=== PATIENT | female | born 1990 | race African-American/Black ===

== ENCOUNTER 2016-07-26 15:54 | Emergency (ER) | payer OTHER ==
[2016-07-26 15:59] VITALS: BP 111/69
[2016-07-26] MEDS ORDERED: NS 0.9% 1000 ML* 1,000 ML IV ONE (17:15)
[2016-07-26 17:43] LABS: Hematocrit 34 % (35-47); Hemoglobin 11.1 g/dl (12.0-16.0); Mean Corpuscular HGB Conc 33 g/dl (31-36); Mean Corpuscular Hemoglobin 31 pg (27-31); Mean Corpuscular Volume 94 fL (80-97); Mean Platelet Volume 10 um3 (7.4-10.4); Red Cell Distribution Width 13 % (10.5-15); White Blood Count 4.4 10^3/ul (3.5-10.8)
[2016-07-26 17:54] LABS: ALT 15 U/L (7-52); Albumin 4.1 g/dL (3.2-5.2); Alkaline Phosphatase 42 U/L (34-104); BUN/Creatinine Ratio 19.7 (8-20); Blood Urea Nitrogen 14 mg/dL (6-24); C Reactive Protein 1.54 mg/L (< 5.00); CO2 Carbon Dioxide 24 mmol/L (22-32); Calcium 9.2 mg/dL (8.6-10.3); Chloride 106 mmol/L (101-111); EGFR African American 130.1 (>60); EGFR Non-African American 101.1 (>60); Glucose 91 mg/dL (70-100); Lipase 21 U/L (11.0-82.0); Sodium 136 mmol/L (133-145); Total Protein 7.1 g/dL (6.4-8.9)
[2016-07-26 17:55] LABS: Anion Gap 6 mmol/L (2-11); Potassium 4.2 mmol/L (3.5-5.0)
[2016-07-26 17:56] LABS: AST 15 U/L (13-39)
--- NOTE | 2016-07-26 19:01 | ED ---
Farideh, DoctorGris, scribed for Rao Moreno MD on 07/26/16 at 1711 . GI/ HPI - HPI Summary HPI Summary: 26 year old female arrived to [facility] c/o lower abdominal pain beginning suddenly two days ago. She reports intermittent pain that has been constant since this morning; rates her pain as 6/10. She additionally has been experiencing vomiting , nausea, increased BMs, and diarrhea. She denies any change in appetite, fever , chills, sore throat, cough, rhinorrhea, pain when inhaling, back pain, flank pain, dysuria, or vaginal discharge. Her pain is unchanged with ambulation or eating; she took an Ibuprofen this morning at 1000 with no relief. She has not experienced an episode similar to this before. Pt has one child (delivered via C -Section) and is currently taking Depo (last shot 4 months ago); she denies possibility of . She has no other abdominal surgeries. Pt has a PMHx of anemia; no history of ovarian cysts. She is a non-smoker, non-drinker. - History of Current Complaint Chief Complaint: EDAbdPain Time Seen by Provider: 07/26/16 16:46 Stated Complaint: ABD PAIN Hx Obtained From: Patient Onset/Duration: Started Days Ago, Still Present Timing: Intermittent Severity: Moderate Current Severity: Moderate Pain Intensity: 6 Location of Pain: Suprapubic - primarily on the right side Associated Signs and Symptoms: Positive: Nausea, Vomiting, Diarrhea, Abdominal Pain, Other: - increased BMs. Negative: Back Pain, Discharge, Fever, Dysuria, Change in Appetite, Flank Pain, Chills, Cough, Chest Pain Additional Signs & Symptoms: Positive: Depo provera. Negative: Recent Travel Alleviating Factor(s): Nothing - no change with Ibuprofen - Allergy/Home Medications Allergies/Adverse Reactions: Allergies Allergy/AdvReac Type Severity Reaction Status Date / Time No Known Allergies Allergy Verified 07/26/16 15:59 PMH/Surg Hx/FS Hx/Imm Hx Endocrine/Hematology History: Denies: Hx Blood Disorders, Hx Diabetes - unknown Comment Only: Hx Anticoagulant Therapy - unknown, Hx Thyroid Disease - unknown Cardiovascular History: Denies: Hx Hypertension - unknown Comment Only: Hx Pacemaker/ICD - unknown Respiratory History: Denies: Hx Asthma - unknown Comment Only: Hx Chronic Obstructive Pulmonary Disease (COPD) - unknown GI History: Denies: Other GI Disorders History: Denies: Other Problems/Disorders Comment Only: Hx Renal Disease - unknown Musculoskeletal History: Denies: Other Musculoskeletal History Neurological History: Denies: Hx Headaches, Hx Migraine Comment Only: Hx Dementia - unknown, Hx Seizures - unknown Psychiatric History: Denies: Hx Anxiety, Hx Depression Comment Only: Hx Substance Abuse - unknown - Immunization History Date of Tetanus Vaccine: Unk Date of Influenza Vaccine: 4076-6771 Season Infectious Disease History: No Infectious Disease History: Denies: Hx Hepatitis, Hx Human Immunodeficiency Virus (HIV), Traveled Outside the [place] in Last 30 Days - Family History Known Family History: Positive: Cardiac Disease, Hypertension Negative: Diabetes - Social History Occupation: Employed Full-time Alcohol Use: Rare Hx Substance Use: No Substance Use Type: Reports: None Hx Tobacco Use: No Smoking Status (MU): Never Smoked Tobacco Review of Systems Negative: Fever, Chills Negative: Sore Throat, Nasal Discharge Negative: Chest Pain Negative: Cough Positive: Abdominal Pain, Vomiting, Diarrhea, Nausea, Other - increased BMs Negative: dysuria, discharge, flank pain Musculoskeletal: Negative - back pain, flank pain Negative: Headache All Other Systems Reviewed And Are Negative: Yes Physical Exam - Summary Physical Exam Summary: General appearance: well appearing, NAD, normal development, thin, normal body habitus, well groomed HEENT: normocephalic, atraumatic, ears and nose without masses or lesions, conjunctivae normal, moist oral mucosa, tonsils normal Neck: symmetric without masses or tracheal deviation, no thyromegaly, neck supple Chest: CTA, normal breath sounds Cardiovascular: good color, warmth, and capillary refill in extremities, no peripheral edema, RRR Musculoskeletal: no CVA tenderness Abdomen: no McBurney's point tenderness, positive for tenderness over right and left ovaries. No pain with percussion of heels, no pain with leg distention. Skin: no visible rashes, lesions, or ulcers; slightly diaphoretic. Neurological/Psychiatric: good fine motor coordination, sensation intact to light touch distally, cranial nerves II-XII grossly intact, appropriate judgment and insight, oriented to time, place and person, normal mood and affect Triage Information Reviewed: Yes Vital Signs On Initial Exam: Initial Vitals Temp Pulse Resp BP Pulse Ox 98.4 F 88 14 111/69 100 07/26/16 15:57 07/26/16 15:57 07/26/16 15:57 07/26/16 15:57 07/26/16 15:57 Vital Signs Reviewed: Yes Diagnostics - Vital Signs Vital Signs Temp Pulse Resp BP Pulse Ox 07/26/16 15:57 98.4 F 88 14 111/69 100 - Laboratory Lab Results: Lab Results 07/26/16 07/26/16 07/26/16 Range/Units 17:30 17:30 17:30 WBC 4.4 (3.5-10.8) 10^3/ul RBC 3.60 L (4.0-5.4) 10^6/ul Hgb 11.1 L (12.0-16.0) g/dl Hct 34 L (35-47) % MCV 94 (80-97) fL MCH 31 (27-31) pg MCHC 33 (31-36) g/dl RDW 13 (10.5-15) % Plt Count 205 (150-450) 10^3/ul MPV 10 (7.4-10.4) um3 Neut % (Auto) 38.0 (38-83) % Lymph % (Auto) 46.3 (25-47) % Mccreary % (Auto) 13.4 H (1-9) % Eos % (Auto) 1.6 (0-6) % Baso % (Auto) 0.7 (0-2) % Absolute Neuts (auto) 1.7 (1.5-7.7) 10^3/ul Absolute Lymphs (auto) 2.0 (1.0-4.8) 10^3/ul Absolute Monos (auto) 0.6 (0-0.8) 10^3/ul Absolute Eos (auto) 0.1 (0-0.6) 10^3/ul Absolute Basos (auto) 0 (0-0.2) 10^3/ul Absolute Nucleated RBC 0.01 10^3/ul Nucleated RBC % 0.1 Sodium 136 (133-145) mmol/L Potassium 4.2 (3.5-5.0) mmol/L Chloride 106 (101-111) mmol/L Carbon Dioxide 24 (22-32) mmol/L Anion Gap 6 (2-11) mmol/L BUN 14 (6-24) mg/dL Creatinine 0.71 (0.51-0.95) mg/dL Est GFR ( Amer) 130.1 (>60) Est GFR (Non-Af Amer) 101.1 (>60) BUN/Creatinine Ratio 19.7 (8-20) Glucose 91 (70-100) mg/dL Lactic Acid 0.6 (0.5-2.0) mmol/L Calcium 9.2 (8.6-10.3) mg/dL Total Bilirubin 0.50 (0.2-1.0) mg/dL AST 15 (13-39) U/L ALT 15 (7-52) U/L Alkaline Phosphatase 42 (34-104) U/L C-Reactive Protein 1.54 (< 5.00) mg/L Total Protein 7.1 (6.4-8.9) g/dL Albumin 4.1 (3.2-5.2) g/dL Globulin 3.0 (2-4) g/dL Albumin/Globulin Ratio 1.4 (1-3) Lipase 21 (11.0-82.0) U/L Beta HCG, Quant < 0.60 mIU/mL Result Diagrams: 07/26/16 17:30 07/26/16 17:30 Lab Statement: Any lab studies that have been ordered have been reviewed, and results considered in the medical decision making process. Re-Evaluation - Re-Evaluation First Eval Re-Evaluation Time: 18:54 Comment: Pt reports slight tenderness on vaginal US on right side, doesn't want any pain medicine. GIGU Course/Dx - Course Assessment/Plan: 1855: Sign-out to Dr. Jackson awaiting US results with dx of ovarian cyst, abdominal pain and pelvic pain. - Diagnoses Differential Diagnoses - Female: Appendicitis, Gastroenteritis (Viral), Ovarian Cyst, Other - mesenteric adenitis, Provider Diagnoses: Abdominal pain, Pelvic pain, Ovarian cyst Discharge - Discharge Plan Condition: Stable Disposition: OTHER Discharge Disposition Comment: pending ultrasound results. Patient Education Materials: Ovarian Cyst (ED), Abdominal Pain (ED), Pelvic Pain in Women (ED) Referrals: [facility] [place] [facility] REFERRAL [Outside] The documentation as recorded by the Doctor cobian Tahera accurately reflects the service I personally performed and the decisions made by me, Rao Moreno MD.
--- NOTE | 2016-07-26 19:27 | RAD ---
INDICATION: 2 days of right lower quadrant pain COMPARISON: None FINDINGS: Real time ultrasound images of the right lower quadrant were acquired in acosta scale and Doppler color flow. The appendix is not discreetly visualized. At least 2 right lower quadrant abdominal lymph nodes are visualized, the larger measuring 1.9 x 0.6 x 0.5 cm. There is no free fluid. IMPRESSION: Nonvisualization of the appendix.
--- NOTE | 2016-07-26 19:33 | ED ---
Progress - Progress Note Progress Note: 26 yo female signed out to me with likely mesenteric adenitis just waiting for final read by radiologist that confirms diagnosis pt discharged home in stable condition Re-Evaluation - Re-Evaluation First Eval Re-Evaluation Time: 18:54 Comment: Pt reports slight tenderness on vaginal US on right side, doesn't want any pain medicine. Course/Dx - Diagnoses Provider Diagnoses: Abdominal pain, Pelvic pain, Ovarian cyst
--- NOTE | 2016-07-26 19:39 | RAD ---
INDICATION: Right worse than left lower quadrant pain COMPARISON: CT abdomen pelvis dated December 18, 2015 TECHNIQUE: Real-time transabdominal and transvaginal ultrasound examination of the female pelvis including grayscale and Doppler color flow imaging. FINDINGS: Uterus: The uterus is normal in size and echogenicity measuring 6.7 x 3.9 x 5.1 cm. The endometrial stripe is smooth and uniform measuring 3 mm in thickness. There is a trace amount of fluid in the endometrial canal. Ovaries: The right and left ovary measure 4.2 x 1.7 x 2.0 cm and 4.4 x 2.1 x 2.4 cm, respectively. Normal arterial and venous waveforms are identified. Appearance is within normal limits for the patient's age. There is no free fluid in the cul-de-sac. IMPRESSION: There is a trace amount of free fluid in the endometrial canal is otherwise normal and age-appropriate pelvic ultrasound. Please correlate to stage of menstruation.
--- NOTE | 2016-07-26 21:12 | ED ---
I, Contreras Vasquez, scribed for Yenni Jackson MD on 07/26/16 at 1936 . Progress - Progress Note Progress Note: 26 yo female signed out to me with likely mesenteric adenitis just waiting for final read by radiologist that confirms diagnosis pt discharged home in stable condition - Results/Orders Results/Orders: ABD US: Radiologist-Nonvisualization of the appendix. Transvaginal US: Radiologist- There is a trace amount of free fluid in the endometrial canal is otherwise normal and age-appropriate pelvic ultrasound. Please correlate to stage of menstruation. Re-Evaluation - Re-Evaluation First Eval Re-Evaluation Time: 18:54 Comment: Pt reports slight tenderness on vaginal US on right side, doesn't want any pain medicine. Course/Dx - Diagnoses Provider Diagnoses: Abdominal pain, Pelvic pain, Ovarian cyst The documentation as recorded by the Pedro cobian Michael accurately reflects the service I personally performed and the decisions made by me, Yenni Jackson MD.
== END 2016-07-26 21:08 ==
LOC: ED 15:54
DX: R10.9 Unspecified abdominal pain (principal); N83.209 Unspecified ovarian cyst, unspecified side; R10.2 Pelvic and perineal pain
CPT/HCPCS: 36415; 76705; 76830; 80053; 83605; 83690; 84702; 85025; 86140; 99282

== ENCOUNTER 2016-08-11 06:00 | Emergency (ER) | payer OTHER ==
[2016-08-11 07:12] LABS: Urine Bacteria Absent (Absent); Urine Bilirubin Negative (Negative); Urine Glucose Negative (Negative); Urine Nitrite Negative (Negative)
[2016-08-11 08:13] LABS: Hematocrit 34 % (35-47); Hemoglobin 11.2 g/dl (12.0-16.0); Mean Corpuscular HGB Conc 33 g/dl (31-36); Mean Corpuscular Hemoglobin 31 pg (27-31); Mean Corpuscular Volume 94 fL (80-97); Mean Platelet Volume 9 um3 (7.4-10.4); Red Blood Count 3.59 10^6/ul (4.0-5.4); Red Cell Distribution Width 13 % (10.5-15)
[2016-08-11 08:26] LABS: ALT 15 U/L (7-52); AST 23 U/L (13-39); Albumin 3.7 g/dL (3.2-5.2); Alkaline Phosphatase 39 U/L (34-104); Anion Gap 4 mmol/L (2-11); BUN/Creatinine Ratio 26.2 (8-20); Blood Urea Nitrogen 16 mg/dL (6-24); CO2 Carbon Dioxide 24 mmol/L (22-32); Calcium 8.5 mg/dL (8.6-10.3); Chloride 108 mmol/L (101-111); EGFR Non-African American 120.5 (>60); Globulin 2.8 g/dL (2-4); Glucose 87 mg/dL (70-100); Potassium 3.7 mmol/L (3.5-5.0); Sodium 136 mmol/L (133-145); Total Protein 6.5 g/dL (6.4-8.9)
--- NOTE | 2016-08-11 12:03 | RAD ---
INDICATION: Right adnexal pain, known cyst evaluate for torsion. COMPARISON: Comparison is made with a prior pelvic ultrasound from July 26, 2016. TECHNIQUE: Multiple real-time transabdominal images of the pelvis were obtained. FINDINGS: The uterus is normal in size, shape and echogenicity. The uterus measured 7.3 x 4.6 x 5.2 cm. The endometrial echo measured 0.4 cm in thickness. The right ovary measured 5.5 x 4.4 x 4.1 cm. The left ovary was not visualized. There is a slightly complex cyst present within the right ovary measuring 4.3 x 4.4 x 2.9 which which appears new from the prior study. There is vascular flow within the right ovary. There is a trace amount of free intraperitoneal fluid in the right adnexal area. IMPRESSION: 1. 4.4 CM SLIGHTLY COMPLEX RIGHT OVARIAN CYST. 2. THE LEFT OVARY WAS NOT VISUALIZED.
[2016-08-11] MEDS ORDERED: Ondansetron ODT TAB* 4 MG PO ONE (12:12)
[2016-08-11] MEDS ORDERED: Sulfamethox/Trimethoprim DS 800/160* TAB PO ONE (12:13)
[2016-08-11 12:41] VITALS: BP 101/53
--- NOTE | 2016-08-12 14:36 | ED ---
Prashant Gong SooYoung, scribed for Doug Evans MD on 08/11/16 at 0745 . Abdominal Pain/Female - HPI Summary HPI Summary: A 26 y/o F presents to to ED with c/o nausea onset 1700 yesterday. She notes that she was in ED two weeks ago for abd pain, dx: ovarian cyst. She states her current abd pain feels slightly different from what she's been experiencing over the past two weeks. Associated sx: chills, sore throat, frequency. Denies: vomiting, cough, rhinorrhea, dysuria,hematuria. PSHx: 2 c-sections. Pt is currently on Depo-Provera shot. - History of Current Complaint Chief Complaint: EDNauseaVomitDiarrh Stated Complaint: ABD PAIN/NAUSEA Hx Obtained From: Patient Hx Last Menstrual Period: none-on Depo shot (was late for last dose) ?: No Onset/Duration: Lasting Hours, Still Present Timing: Constant Severity Initially: Mild Severity Currently: None Pain Intensity: 0 Pain Scale Used: 0-10 Numeric Location: Discrete At: RLQ Associated Signs and Symptoms: Positive: Urinary Symptoms - pos: freq, Nausea. Negative: Fever, Cough, Dizzy, Blood in Stool, Vaginal Bleeding, Vaginal Discharge, Vomiting, Diarrhea Allergies/Adverse Reactions: Allergies Allergy/AdvReac Type Severity Reaction Status Date / Time No Known Allergies Allergy Verified 07/26/16 15:59 PMH/Surg Hx/FS Hx/Imm Hx Previously Healthy: Yes Endocrine/Hematology History: Denies: Hx Blood Disorders, Hx Diabetes - unknown Comment Only: Hx Anticoagulant Therapy - unknown, Hx Thyroid Disease - unknown Cardiovascular History: Denies: Hx Hypertension - unknown Comment Only: Hx Pacemaker/ICD - unknown Respiratory History: Denies: Hx Asthma - unknown Comment Only: Hx Chronic Obstructive Pulmonary Disease (COPD) - unknown GI History: Denies: Other GI Disorders History: Denies: Other Problems/Disorders Comment Only: Hx Renal Disease - unknown Musculoskeletal History: Denies: Other Musculoskeletal History Neurological History: Denies: Hx Headaches, Hx Migraine Comment Only: Hx Dementia - unknown, Hx Seizures - unknown Psychiatric History: Denies: Hx Anxiety, Hx Depression Comment Only: Hx Substance Abuse - unknown - Immunization History Date of Tetanus Vaccine: Unk Date of Influenza Vaccine: 4044-8985 Season Infectious Disease History: No Infectious Disease History: Denies: Hx Hepatitis, Hx Human Immunodeficiency Virus (HIV), Traveled Outside the [place] in Last 30 Days - Family History Known Family History: Positive: Cardiac Disease, Hypertension Negative: Diabetes - Social History Occupation: Unemployed - OTHER Lives: With Family Alcohol Use: Rare Hx Substance Use: No Substance Use Type: Reports: None Hx Tobacco Use: No Smoking Status (MU): Never Smoked Tobacco Review of Systems Positive: Chills. Negative: Fever Negative: Erythema Positive: Sore Throat. Negative: Nasal Discharge Negative: Chest Pain Negative: Shortness Of Breath, Cough Positive: Abdominal Pain, Nausea. Negative: Vomiting Positive: frequency. Negative: dysuria, hematuria Negative: Myalgia, Edema Negative: Rash Neurological: Other - neg: dizziness All Other Systems Reviewed And Are Negative: Yes Physical Exam - Summary Physical Exam Summary: Constitutional: Well-developed, Well-nourished, Alert. (-) Distressed Skin: Warm, Dry HENT: Normocephalic; Atraumatic; TONSILAR ENLARGEMENT Eyes: Conjunctiva normal Neck: Musculoskeletal ROM normal neck. (-) JVD, (-) Stridor, (-) Tracheal deviation Cardio: Rhythm regular, rate normal, Heart sounds normal; Intact distal pulses; The pedal pulses are 2+ and symmetric. Radial pulses are 2+ and symmetric. (-) Murmur Pulmonary/Chest wall: Effort normal. (-) Respiratory distress, (-) Wheezes, (-) Rales Abd: Soft, (-) Distension, (-) Guarding, (-) Rebound; R ADNEXAL TENDERNESS Musculoskeletal: (-) Edema Lymph: (-) Cervical adenopathy Neuro: Alert, Oriented x3 Psych: Mood and affect Normal Triage Information Reviewed: Yes Vital Signs On Initial Exam: Initial Vitals Temp Pulse Resp BP Pulse Ox 98.2 F 97 18 111/67 99 08/11/16 06:25 08/11/16 06:25 08/11/16 06:25 08/11/16 06:25 08/11/16 06:25 Vital Signs Reviewed: Yes Diagnostics - Vital Signs Vital Signs Temp Pulse Resp BP Pulse Ox 08/11/16 06:25 98.2 F 97 18 111/67 99 - Laboratory Result Diagrams: 08/11/16 08:05 08/11/16 08:05 Lab Statement: Any lab studies that have been ordered have been reviewed, and results considered in the medical decision making process. - Ultrasound No standard instances Ultrasound Interpretation: Positive (See Comments) - PELVIS US, IMPRESSION: 1. 4.4 CM SLIGHTLY COMPLEX RIGHT OVARIAN CYST. 2. THE LEFT OVARY WAS NOT VISUALIZED. Ultrasound Interpretation Completed By: Radiologist Abdominal Pain Fem Course/Dx - Course Course Of Treatment: Pt is a 26 y/o F presenting with c/o nausea onset 1700 yesterday. From ED visit two weeks ago, dx: ovarian cyst. Associated sx: abd pain, chills, sore throat, frequency. Denies: vomiting, cough, rhinorrhea, dysuria,hematuria. PSHx: 2 c-sections. Pt is currently on Depo-Provera shot. UA results show trace ketones, leukocyte esterase (1+), WBCs (2+), epithethelial cells and ascorbic acid present. Specific gravity is 1.031. Strep A test is negative. PELVIS U/S shows 4.4 cm slightly complex R ovarian cyst, L ovary not visualized. Will D/C home with bactrim, zofran. - Diagnoses Provider Diagnoses: UTI (urinary tract infection), Ovarian cyst Discharge - Discharge Plan Condition: Stable Disposition: HOME Patient Education Materials: Urinary Tract Infection in Women (ED), Ovarian Cyst (ED) Referrals: No Primary Care Phys,NOPCP [Primary Care Provider] - [facility] [place] [facility] REFERRAL [Outside] Additional Instructions: Return to the emergency department for changing or worsening symptoms. The documentation as recorded by the Prashant cobian SooYoung accurately reflects the service I personally performed and the decisions made by me, Doug Evans MD.
== END 2016-08-11 12:40 | disposition home or self-care (01) ==
LOC: ED 06:00
DX: N39.0 Urinary tract infection, site not specified (principal); N83.201 Unspecified ovarian cyst, right side
CPT/HCPCS: 36415; 76856; 80053; 81003; 81015; 84702; 85027; 87086; 87651; 99283; A9270-GY

== ENCOUNTER 2016-11-10 16:19 | Emergency (ER) | payer BC ==
[2016-11-10] MEDS ORDERED: NS 0.9% 1000 ML* 1,000 ML IV ONE (17:23)
[2016-11-10 18:00] LABS: ALT 13 U/L (7-52); Albumin 4.3 g/dL (3.2-5.2); Alkaline Phosphatase 39 U/L (34-104); Blood Urea Nitrogen 8 mg/dL (6-24); CO2 Carbon Dioxide 27 mmol/L (22-32); Calcium 9.7 mg/dL (8.6-10.3); Chloride 100 mmol/L (101-111); EGFR African American 167.6 (>60); EGFR Non-African American 130.3 (>60); Globulin 3.4 g/dL (2-4); Glucose 85 mg/dL (70-100); Sodium 132 mmol/L (133-145); Total Protein 7.7 g/dL (6.4-8.9)
[2016-11-10 18:04] LABS: Anion Gap 5 mmol/L (2-11); Hematocrit 35 % (35-47); Hemoglobin 11.8 g/dl (12.0-16.0); Mean Corpuscular HGB Conc 34 g/dl (31-36); Mean Corpuscular Hemoglobin 32 pg (27-31); Mean Corpuscular Volume 94 fL (80-97); Mean Platelet Volume 10 um3 (7.4-10.4); Red Blood Count 3.73 10^6/ul (4.0-5.4); Red Cell Distribution Width 13 % (10.5-15); White Blood Count 6.7 10^3/ul (3.5-10.8)
--- NOTE | 2016-11-10 21:18 | RAD ---
Indication: Suprapubic pain. Real-time sonography of the was performed. There is an intrauterine gestational sac measuring 2.5 cm. [place]-rump length measures up to 1.4 cm. This corresponds to gestational age of 7 weeks 5 days. heart activity is noted at 161 bpm. Right ovary measures 2.6 x 1.6 x 1.5 cm. Left ovary measures 3.1 x 2.0 x 1.7 cm., Echo complex area adjacent to the gestational sac is noted consistent with subchorionic hemorrhage measuring 3.2 x 2.5 x 3.0 cm. Free fluid is noted in the uterus. IMPRESSION: Single intrauterine gestation with a gestational age of 7 weeks 5 days. Subchorionic hemorrhage measuring 3.2 x 2.5 x 3.0 cm. Estimated date of delivery is June 24, 2017.
--- NOTE | 2016-11-10 21:41 | ED ---
Lynda Gong Rebecca, scribed for Yenni Jackson MD on 11/10/16 at 1719 . Abdominal Pain/Female - HPI Summary HPI Summary: Pt is a 26 y/o F who presents to ED c/o RLQ abd pain. Sx began 1 week ago and had been improving until the pain worsened last night. At its worst, pain was 8/ 10 and now it is 8/10. Additionally c/o vaginal bleeding. Sx aggravated and alleviated by nothing. 1 week ago, at onset of pain, pt had an US with [facility] sales support coordinator who reports she had an ovarian cyst and was at 5 weeks gestation. 3 days after that appointment, the cyst ruptured and she returned to [facility] where an US was done, confirming the cyst rupturing and they reported an IUP was no longer visualized. LNMP unknown due to being on the Depo shot. A0. - History of Current Complaint Chief Complaint: EDAbdPain Stated Complaint: ABD PAIN Time Seen by Provider: 11/10/16 16:58 Hx Obtained From: Patient Hx Last Menstrual Period: none-on Depo shot (was late for last dose) Onset/Duration: Lasting Weeks - 1 week, Still Present, Worse Since - Last night Severity Initially: Severe - 10/10 Severity Currently: Severe Pain Intensity: 8 Pain Scale Used: 0-10 Numeric Location: Discrete At: RLQ Aggravating Factor(s): Nothing Alleviating Factor(s): Nothing Associated Signs and Symptoms: Positive: Vaginal Bleeding Allergies/Adverse Reactions: Allergies Allergy/AdvReac Type Severity Reaction Status Date / Time No Known Allergies Allergy Verified 07/26/16 15:59 PMH/Surg Hx/FS Hx/Imm Hx Endocrine/Hematology History: Denies: Hx Blood Disorders, Hx Diabetes - unknown Comment Only: Hx Anticoagulant Therapy - unknown, Hx Thyroid Disease - unknown Cardiovascular History: Denies: Hx Hypertension - unknown Comment Only: Hx Pacemaker/ICD - unknown Respiratory History: Denies: Hx Asthma - unknown Comment Only: Hx Chronic Obstructive Pulmonary Disease (COPD) - unknown GI History: Denies: Other GI Disorders History: Denies: Other Problems/Disorders Comment Only: Hx Renal Disease - unknown Musculoskeletal History: Denies: Other Musculoskeletal History Neurological History: Denies: Hx Headaches, Hx Migraine Comment Only: Hx Dementia - unknown, Hx Seizures - unknown Psychiatric History: Denies: Hx Anxiety, Hx Depression Comment Only: Hx Substance Abuse - unknown - Surgical History Surgery Procedure, Year, and Place: none - Immunization History Date of Tetanus Vaccine: Unk Date of Influenza Vaccine: 7969-3495 Season Infectious Disease History: Denies: Hx Hepatitis, Hx Human Immunodeficiency Virus (HIV), Traveled Outside the [place] in Last 30 Days - Family History Known Family History: Positive: Cardiac Disease, Hypertension Negative: Diabetes - Social History Alcohol Use: Rare Hx Substance Use: No Substance Use Type: Reports: None Hx Tobacco Use: No Smoking Status (MU): Never Smoked Tobacco Review of Systems Positive: Abdominal Pain - RLQ pain Positive: other - Vaginal bleeding All Other Systems Reviewed And Are Negative: Yes Physical Exam - Summary Physical Exam Summary: General: Well appearing, no pain distress Skin: Warm, Skin Color Reflects Adequate Perfusion, Dry Eyes: EOMI, MAGGIE ENT: Pharynx normal, TMs normal Neck: Supple, nontender Respiratory: CTA, breath sounds present, no rhonchi, no wheezes, no rales Cardiovascular: RRR, no murmur, no rub, no gallop Abdomen: Soft, R suprapubic tenderness with pain that is movement oriented, Non- distended, no guarding, no rebound Bowel: Present Musculoskeletal: VIVEK, No edema Neuro: Sensory/motor intact, A&Ox3, CN intact 2-12 Psych: Affect/mood appropriate Triage Information Reviewed: Yes Vital Signs On Initial Exam: Initial Vitals Temp Pulse Resp BP Pulse Ox 98.2 F 86 18 103/61 100 11/10/16 16:26 11/10/16 16:26 11/10/16 16:26 11/10/16 16:26 11/10/16 16:26 Vital Signs Reviewed: Yes Diagnostics - Vital Signs Vital Signs Temp Pulse Resp BP Pulse Ox 11/10/16 16:26 98.2 F 86 18 103/61 100 - Laboratory Lab Results: Lab Results 11/10/16 11/10/16 11/10/16 Range/Units 17:35 17:35 17:35 WBC 6.7 (3.5-10.8) 10^3/ul RBC 3.73 L (4.0-5.4) 10^6/ul Hgb 11.8 L (12.0-16.0) g/dl Hct 35 (35-47) % MCV 94 (80-97) fL MCH 32 H (27-31) pg MCHC 34 (31-36) g/dl RDW 13 (10.5-15) % Plt Count 253 (150-450) 10^3/ul MPV 10 (7.4-10.4) um3 Neut % (Auto) 59.5 (38-83) % Lymph % (Auto) 30.5 (25-47) % Boyd % (Auto) 8.6 (1-9) % Eos % (Auto) 0.8 (0-6) % Baso % (Auto) 0.6 (0-2) % Absolute Neuts (auto) 4.0 (1.5-7.7) 10^3/ul Absolute Lymphs (auto) 2.0 (1.0-4.8) 10^3/ul Absolute Monos (auto) 0.6 (0-0.8) 10^3/ul Absolute Eos (auto) 0.1 (0-0.6) 10^3/ul Absolute Basos (auto) 0 (0-0.2) 10^3/ul Absolute Nucleated RBC 0 10^3/ul Nucleated RBC % 0.1 Sodium 132 L (133-145) mmol/L Potassium TNP Chloride 100 L (101-111) mmol/L Carbon Dioxide 27 (22-32) mmol/L Anion Gap 5 (2-11) mmol/L BUN 8 (6-24) mg/dL Creatinine 0.57 (0.51-0.95) mg/dL Est GFR ( Amer) 167.6 (>60) Est GFR (Non-Af Amer) 130.3 (>60) BUN/Creatinine Ratio 14.0 (8-20) Glucose 85 (70-100) mg/dL Lactic Acid 1.1 (0.5-2.0) mmol/L Calcium 9.7 (8.6-10.3) mg/dL Total Bilirubin 0.50 (0.2-1.0) mg/dL AST TNP ALT 13 (7-52) U/L Alkaline Phosphatase 39 (34-104) U/L Total Protein 7.7 (6.4-8.9) g/dL Albumin 4.3 (3.2-5.2) g/dL Globulin 3.4 (2-4) g/dL Albumin/Globulin Ratio 1.3 (1-3) Beta HCG, Quant 549587.00 mIU/mL 11/10/16 Range/Units 18:10 WBC (3.5-10.8) 10^3/ul RBC (4.0-5.4) 10^6/ul Hgb (12.0-16.0) g/dl Hct (35-47) % MCV (80-97) fL MCH (27-31) pg MCHC (31-36) g/dl RDW (10.5-15) % Plt Count (150-450) 10^3/ul MPV (7.4-10.4) um3 Neut % (Auto) (38-83) % Lymph % (Auto) (25-47) % Boyd % (Auto) (1-9) % Eos % (Auto) (0-6) % Baso % (Auto) (0-2) % Absolute Neuts (auto) (1.5-7.7) 10^3/ul Absolute Lymphs (auto) (1.0-4.8) 10^3/ul Absolute Monos (auto) (0-0.8) 10^3/ul Absolute Eos (auto) (0-0.6) 10^3/ul Absolute Basos (auto) (0-0.2) 10^3/ul Absolute Nucleated RBC 10^3/ul Nucleated RBC % Sodium (133-145) mmol/L Potassium 3.6 Chloride (101-111) mmol/L Carbon Dioxide (22-32) mmol/L Anion Gap (2-11) mmol/L BUN (6-24) mg/dL Creatinine (0.51-0.95) mg/dL Est GFR ( Amer) (>60) Est GFR (Non-Af Amer) (>60) BUN/Creatinine Ratio (8-20) Glucose (70-100) mg/dL Lactic Acid (0.5-2.0) mmol/L Calcium (8.6-10.3) mg/dL Total Bilirubin (0.2-1.0) mg/dL AST 15 ALT (7-52) U/L Alkaline Phosphatase (34-104) U/L Total Protein (6.4-8.9) g/dL Albumin (3.2-5.2) g/dL Globulin (2-4) g/dL Albumin/Globulin Ratio (1-3) Beta HCG, Quant mIU/mL Result Diagrams: 11/10/16 17:35 11/10/16 18:10 Lab Statement: Any lab studies that have been ordered have been reviewed, and results considered in the medical decision making process. - Ultrasound No standard instances Ultrasound Interpretation Completed By: Radiologist - TRANSVAGINAL US: Single intrauterine gestation with a gestational age of 7 weeks 5 days. Subchorionic hemorrhage measuring 3.2 x 2.5 x 3.0 cm. Estimated date of delivery is May. Abdominal Pain Fem Course/Dx - Course Course Of Treatment: 26 yo female who was unsure if she was for sure (previous u/s showed a sac no pole and corpus luteal cyst) who has seen her ob and reports she was told she had an ovarian cyst rupture. She comes in with pain, and spotting no hemorrhage she is very well appearing and does not appear to be in pain her u/s doesn't show an ectopic and does she a 7wk 5day fetus with a subchorionic hemorrhage. I have encouraged her to get very close f/u due to on going issues and pain - Diagnoses Provider Diagnoses: Threatened miscarriage in early Discharge - Discharge Plan Condition: Stable Disposition: HOME The documentation as recorded by the Lynda cobian Rebecca accurately reflects the service I personally performed and the decisions made by me, Yenni Jackson MD.
[2016-11-10 21:47] LABS: Urine Bacteria 1+ (Absent); Urine Bilirubin Negative (Negative); Urine Glucose Negative (Negative); Urine Nitrite Positive (Negative)
[2016-11-10] MEDS ORDERED: Cephalexin CAP* 500 MG PO ONE (22:00)
[2016-11-10 23:02] VITALS: BP 103/68
== END 2016-11-10 22:30 | disposition home or self-care (01) ==
LOC: ED 16:19
DX: O20.0 Threatened abortion (principal); Z3A.01 Less than 8 weeks gestation of pregnancy; R10.31 Right lower quadrant pain
CPT/HCPCS: 36415; 76817; 80053; 81003; 81015; 83605; 84702; 85025; 86850; 86900; 86901; 87077; 87086; 87186; 99282; A9270-GY

== ENCOUNTER 2017-03-05 08:33 | Emergency (ER) | payer BC ==
[2017-03-05] MEDS ORDERED: NS 0.9% 1000 ML* 2,000 ML IV ONE (08:35)
[2017-03-05 09:19] LABS: Hematocrit 35 % (35-47); Hemoglobin 11.4 g/dl (12.0-16.0); Mean Corpuscular HGB Conc 33 g/dl (31-36); Mean Corpuscular Hemoglobin 31 pg (27-31); Mean Corpuscular Volume 95 fL (80-97); Mean Platelet Volume 9 um3 (7.4-10.4); Red Blood Count 3.64 10^6/ul (4.0-5.4); Red Cell Distribution Width 13 % (10.5-15); White Blood Count 3.4 10^3/ul (3.5-10.8)
[2017-03-05 09:21] LABS: Add Diff/Slide Review? Slide Review Added; Comments Flag Yes
[2017-03-05] MEDS: Ondansetron INJ* 2 MG/ML VIAL IV ONE ×2 (09:30→13:06)
[2017-03-05 09:33] LABS: ALT 12 U/L (7-52); AST 13 U/L (13-39); Albumin 3.9 g/dL (3.2-5.2); Alkaline Phosphatase 39 U/L (34-104); Anion Gap 4 mmol/L (2-11); BUN/Creatinine Ratio 21.4 (8-20); Blood Urea Nitrogen 15 mg/dL (6-24); C Reactive Protein < 1.00 mg/L (< 5.00); CO2 Carbon Dioxide 24 mmol/L (22-32); Calcium 9.2 mg/dL (8.6-10.3); Chloride 109 mmol/L (101-111); EGFR African American 132.2 (>60); EGFR Non-African American 102.8 (>60); Globulin 2.9 g/dL (2-4); Glucose 99 mg/dL (70-100); Lipase 39 U/L (11.0-82.0); Potassium 4.2 mmol/L (3.5-5.0); Sodium 137 mmol/L (133-145); Total Protein 6.8 g/dL (6.4-8.9)
[2017-03-05 13:05] VITALS: BP 97/63
--- NOTE | 2017-03-05 17:20 | ED ---
Michel Gong Angela, scribed for Korey Townsend MD on 03/05/17 at 0924 . Abdominal Pain/Female - HPI Summary HPI Summary: This pt is a 26 y/o female, , presenting [facility] c/o abd cramping and diarrhea x5 days. Pt reports diarrhea is watery. She states that everything she eats goes right through her. She denies recent travel out of the country. No recent antibiotics. She notes her son has a cold, but denies any other sick contacts. Pt just recently finished her period. She denies any PMHx. PSHx includes c- section x 2. - History of Current Complaint Chief Complaint: EDAbdPain Stated Complaint: VOMITING DIARRHEA Time Seen by Provider: 03/05/17 08:35 Hx Obtained From: Patient Hx Last Menstrual Period: none-on Depo shot (was late for last dose) Onset/Duration: Lasting Days, Still Present Timing: Constant Severity Currently: Moderate Pain Intensity: 6 Pain Scale Used: 0-10 Numeric Location: Diffuse Radiates: No Character: Cramping Associated Signs and Symptoms: Positive: Vomiting, Diarrhea. Negative: Constipation, Blood in Stool, Urinary Symptoms, Vaginal Bleeding Allergies/Adverse Reactions: Allergies Allergy/AdvReac Type Severity Reaction Status Date / Time No Known Allergies Allergy Verified 03/05/17 08:34 PMH/Surg Hx/FS Hx/Imm Hx Endocrine/Hematology History: Denies: Hx Blood Disorders, Hx Diabetes - unknown Comment Only: Hx Anticoagulant Therapy - unknown, Hx Thyroid Disease - unknown Cardiovascular History: Denies: Hx Hypertension - unknown Comment Only: Hx Pacemaker/ICD - unknown Respiratory History: Denies: Hx Asthma - unknown Comment Only: Hx Chronic Obstructive Pulmonary Disease (COPD) - unknown GI History: Denies: Other GI Disorders History: Denies: Other Problems/Disorders Comment Only: Hx Renal Disease - unknown Musculoskeletal History: Denies: Other Musculoskeletal History Neurological History: Denies: Hx Headaches, Hx Migraine Comment Only: Hx Dementia - unknown, Hx Seizures - unknown Psychiatric History: Denies: Hx Anxiety, Hx Depression Comment Only: Hx Substance Abuse - unknown - Surgical History Surgery Procedure, Year, and Place: none - Immunization History Date of Tetanus Vaccine: Unk Date of Influenza Vaccine: 8001-2981 Season Infectious Disease History: No Infectious Disease History: Denies: Hx Hepatitis, Hx Human Immunodeficiency Virus (HIV), Traveled Outside the [place] in Last 30 Days - Family History Known Family History: Positive: Cardiac Disease, Hypertension Negative: Diabetes - Social History Alcohol Use: Rare Hx Substance Use: No Substance Use Type: Reports: None Hx Tobacco Use: No Smoking Status (MU): Never Smoked Tobacco Review of Systems Constitutional: Negative Eyes: Negative ENT: Negative Positive: Abdominal Pain, Diarrhea Musculoskeletal: Negative Skin: Negative Neurological: Negative All Other Systems Reviewed And Are Negative: Yes Physical Exam - Summary Physical Exam Summary: VITAL SIGNS: Reviewed. GENERAL: Patient is a well-developed and nourished female who is lying comfortable in the stretcher. Patient is not in any acute respiratory distress. HEAD AND FACE: Normocephalic and atraumatic. EYES: PERRLA, EOMI x 2, No injected conjunctiva. EARS: Hearing grossly intact. Ear canals and tympanic membranes are WNL. MOUTH: Oropharynx within normal limits. NECK: Supple, trachea is midline, no adenopathy, no JVD. CHEST: Symmetric, no tenderness at palpation LUNGS: Clear to auscultation bilaterally. No wheezing or crackles. CVS: RRR, S1 and S2 present, no murmurs or gallops appreciated. ABDOMEN: Soft, non-tender. No signs of distention. Increased bowel sounds. No rebound no guarding, and no masses palpated. No abdominal bruit or pulsations. EXTREMITIES: FROM in all major joints, no edema, no cyanosis or clubbing. NEURO: Alert and oriented x 3. No acute neurological deficits. Speech is normal. SKIN: Dry and warm Triage Information Reviewed: Yes Vital Signs On Initial Exam: Initial Vitals Temp Pulse Resp BP Pulse Ox 97.6 F 90 16 97/60 100 03/05/17 08:34 03/05/17 08:34 03/05/17 08:34 03/05/17 08:34 03/05/17 08:34 Vital Signs Reviewed: Yes Diagnostics - Vital Signs Vital Signs Temp Pulse Resp BP Pulse Ox 03/05/17 08:34 97.6 F 90 16 97/60 100 - Laboratory Lab Results: Lab Results 03/05/17 03/05/17 Range/Units 09:07 09:07 WBC 3.4 L (3.5-10.8) 10^3/ul RBC 3.64 L (4.0-5.4) 10^6/ul Hgb 11.4 L (12.0-16.0) g/dl Hct 35 (35-47) % MCV 95 (80-97) fL MCH 31 (27-31) pg MCHC 33 (31-36) g/dl RDW 13 (10.5-15) % Plt Count 185 (150-450) 10^3/ul MPV 9 (7.4-10.4) um3 Neut % (Auto) 40.6 (38-83) % Lymph % (Auto) 44.7 (25-47) % Newton % (Auto) 12.5 H (1-9) % Eos % (Auto) 1.3 (0-6) % Baso % (Auto) 0.9 (0-2) % Absolute Neuts (auto) 1.4 L (1.5-7.7) 10^3/ul Absolute Lymphs (auto) 1.5 (1.0-4.8) 10^3/ul Absolute Monos (auto) 0.4 (0-0.8) 10^3/ul Absolute Eos (auto) 0 (0-0.6) 10^3/ul Absolute Basos (auto) 0 (0-0.2) 10^3/ul Absolute Nucleated RBC 0 10^3/ul Nucleated RBC % 0.1 Sodium 137 (133-145) mmol/L Potassium 4.2 (3.5-5.0) mmol/L Chloride 109 (101-111) mmol/L Carbon Dioxide 24 (22-32) mmol/L Anion Gap 4 (2-11) mmol/L BUN 15 (6-24) mg/dL Creatinine 0.70 (0.51-0.95) mg/dL Est GFR ( Amer) 132.2 (>60) Est GFR (Non-Af Amer) 102.8 (>60) BUN/Creatinine Ratio 21.4 H (8-20) Glucose 99 (70-100) mg/dL Calcium 9.2 (8.6-10.3) mg/dL Total Bilirubin 0.40 (0.2-1.0) mg/dL AST 13 (13-39) U/L ALT 12 (7-52) U/L Alkaline Phosphatase 39 (34-104) U/L C-Reactive Protein < 1.00 (< 5.00) mg/L Total Protein 6.8 (6.4-8.9) g/dL Albumin 3.9 (3.2-5.2) g/dL Globulin 2.9 (2-4) g/dL Albumin/Globulin Ratio 1.3 (1-3) Lipase 39 (11.0-82.0) U/L Beta HCG, Quant 2.09 mIU/mL Result Diagrams: 03/05/17 09:07 03/05/17 09:07 Lab Statement: Any lab studies that have been ordered have been reviewed, and results considered in the medical decision making process. Re-Evaluation - Re-Evaluation First Eval Re-Evaluation Time: 12:28 Comment: Pt reports feeling better. Abdominal Pain Fem Course/Dx - Course Course Of Treatment: This pt is a 26 y/o female, , presenting to [facility] c/o abd cramping and diarrhea x5 days. Pt reports diarrhea is watery. She states that everything she eats goes right through her. She denies recent travel out of the country. No recent antibiotics. She notes her son has a cold, but denies any other sick contacts. Pt just recently finished her period. She denies any PMHx. PSHx includes x 2. Test results without any significant abnormalities. The pt was given IV fluids and is tolerating PO without any nausea or vomiting. She feels better. Pt is unable to give us any stool samples at this time. The pt was observed for a couple of hours, her symptoms improved and did not return. On re-examination before discharge, the abdomen is soft, non-tender with positive bowel sounds. Therefore, she will be discharged home with follow up from her PCP. Pt is hemodynamically stable, alert and oriented x3. - Diagnoses Differential Diagnosis: Positive: Other - Gastroenteritis, Gastritis, Diarrhea Provider Diagnoses: Diarrhea Discharge - Discharge Plan Condition: Stable Disposition: HOME Prescriptions: Diphenoxylat/Atrop 2.5-0.025M* [Lomotil TAB*] 1 tab PO TID PRN #6 tab MDD 3 PRN Reason: Pain Patient Education Materials: Acute Diarrhea (ED) Forms: *Work Release Referrals: Adilene Pollack MD [Primary Care Provider] - Additional Instructions: Please follow up with your primary care provider. RETURN TO THE ED FOR ANY WORSENING SYMPTOMS. The documentation as recorded by the Michel cobian Angela accurately reflects the service I personally performed and the decisions made by me, Korey Townsend MD.
== END 2017-03-05 13:05 | disposition home or self-care (01) ==
LOC: ED 08:33
DX: R19.7 Diarrhea, unspecified (principal); R11.10 Vomiting, unspecified; R10.84 Generalized abdominal pain; Z32.02 Encounter for pregnancy test, result negative
CPT/HCPCS: 36415; 80053; 83690; 84702; 85025; 86140; 99282; J2405

== ENCOUNTER 2017-07-09 08:14 | Day surgery (SDC) | payer BC, MEDICAID, OTHER ==
--- NOTE | 2017-07-08 08:54 | HP ---
PREOPERATIVE HISTORY AND PHYSICAL: DATE OF SURGERY/ADMISSION: 07/09/17 LOCATED WITHIN [facility] DATE OF OFFICE VISIT/ENCOUNTER: 07/03/17 ATTENDING SURGEON: Brea Bliss MD * (DICTATED BY BONITA BOCANEGRA) PROCEDURE: Right wrist ganglion cyst excision. CHIEF COMPLAINT: Cyst, right wrist. HISTORY OF PRESENT ILLNESS: This is a 27-year-old female who complaints of a lump on the volar radial aspect of her right wrist that has been present for a few months. She does not recall any injury to the wrist. It bothers her when- ever she puts pressure on it and when she tries to extend her wrist all the way. She denies any associated numbness or tingling. She is interested in having the cyst surgically removed. PAST MEDICAL HISTORY: Unremarkable. PAST SURGICAL HISTORY: x2. MEDICATIONS: Ibuprofen p.r.n. ALLERGIES: No known drug allergies. FAMILY MEDICAL HISTORY: Heart disease. 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 She denies tobacco use and recreational drug use. She does drink alcohol on occasion. REVIEW OF SYSTEMS: General: Negative for fevers, chills, or night sweats. No known anesthesia problems. HEENT: Negative for headache, lightheadedness, or syncopal episodes. Integumentary: Negative for abrasions, lesions, or open wounds. Cardiothoracic: Negative for hypertension, chest pain, palpitations, or edema. Pulmonary: Negative for shortness of breath with exertion, chronic cough, COPD. GI: Negative for nausea, vomiting, diarrhea, constipation, or GERD. : Negative for nocturia, urinary frequency, urgency, history of UTIs, and kidney problems. Musculoskeletal: Positive for current complaint. Neurological: Negative for paresthesias, numbness, history of seizure, stroke, or epilepsy. Endocrine: Negative for diabetes and thyroid issues. Hematologic : Negative for easy bruising, anemia, excessive bleeding, history of DVT. Infectious Disease: Negative for history of MRSA, hepatitis C, or HIV. PHYSICAL EXAMINATION GENERAL: Well-developed, well-nourished 27-year-old female, in no acute distress. VITAL SIGNS: Height 5 feet 1 inches, weight 93 pounds, pulse rate 72, blood pressure 98/60. HEENT: Normocephalic, atraumatic. Pupils are equal, round, and reactive to light and accommodation. Extraocular movements are intact. Throat is clear. NECK: Supple. No palpable lymph nodes. PULMONARY: Lungs are clear to auscultation bilaterally. No wheezes, rales, or rhonchi. CARDIOVASCULAR: Regular rate and rhythm. S1, S2. No murmurs, rubs, or gallops. No edema. ABDOMEN: Positive bowel sounds, soft, nontender. NEUROLOGICAL: Alert and oriented x3. Cranial nerves II through XII are intact. MUSCULOSKELETAL: On exam of the right wrist, she has a cystic mass on the volar aspect approximately 1 cm in diameter. It is tender to palpation. She has some limitation of flexion and extension and motions caused pain. She can make a full fist and neurovascular function is intact. IMAGING STUDIES: Imaging studies of the right wrist show no bony abnormality. ASSESSMENT: Right volar wrist ganglion. PLAN: The patient is scheduled to undergo a right wrist ganglion cyst excision with Dr. Bliss on 07/09/17. She will return to the office in 10 to 14 days postop for followup and suture removal. A prescription for Ultracet was e- scribed to the patient's pharmacy for postoperative pain management. BONITA BOCANEGRA [id number] #: [id number] MTDKris
[~2017-07-09 08:14] MED LIST: Buffered Lidocaine 0.9% SYRIN* 5 ML/SYR SYRINGE INTRADERM ONE; Famotidine IV* 10 MG/ML 2 ML (20 mg) IV ONE
[2017-07-09] MEDS ORDERED: Midazolam* 1 MG/ML 5 ML VIAL (5 MG) ONE ×2 (08:21)
[2017-07-09] MEDS ORDERED: fentaNYL* 50 MCG/ML 2 ML VIAL (100 MCG VIAL) ONE ×2 (08:21)
[2017-07-09] MEDS ORDERED: Lidocaine 1% INJ* 10 MG/ML 30 ML SDV ONE ×2 (08:58)
[2017-07-09] MEDS ORDERED: DiMENhydriNATE IV* 50 MG/ML VIAL IV PUSH PRN (09:02)
[2017-07-09] MEDS ORDERED: oxyCODONE TAB* 5 MG TAB PO PRN (09:02)
[2017-07-09] MEDS ORDERED: Naloxone* 0.4 MG/ML 1 ML VIAL IV PRN (09:02)
[2017-07-09] MEDS ORDERED: Acetaminophen TAB* 325 MG PO PRN (09:02)
[2017-07-09] MEDS ORDERED: Ondansetron INJ* 2 MG/ML VIAL ONE ×2 (09:29)
[2017-07-09] MEDS ORDERED: Propofol* 10 MG/ML 20 ML BTL IV PUSH ONE ×2 (09:29)
[2017-07-09] MEDS ORDERED: Lidocaine 2% PF * 5 ML VIAL ONE ×2 (09:29)
[2017-07-09] MEDS ORDERED: Ketorolac INJ* 30 MG/ML 1 ML VIAL ONE ×2 (09:29)
[2017-07-09 10:03] VITALS: BP 98/65
--- NOTE | 2017-07-09 14:01 | OP ---
DATE OF OPERATION: 07/09/17 [facility] DATE OF : 89 SURGEON: Brea Bliss MD PRIVATE CHEF: BONITA Solano ANESTHESIA: Local MAC. PRE-OP DIAGNOSIS: Right volar wrist ganglion. POST-OP DIAGNOSIS: Right volar wrist ganglion. OPERATIVE PROCEDURE: Removal of wrist ganglion. ESTIMATED BLOOD LOSS: Zero. TOURNIQUET TIME: Approximately 15 minutes. INDICATION FOR PROCEDURE: Chele is a 27-year-old female with a painful mass on the volar radial aspect of her right wrist. She presents for removal. Clinically, it is a ganglion cyst. DESCRIPTION OF PROCEDURE: The patient was brought to the operating room, was given a sedation anesthetic, and a local infiltration of 10 cc of 1% plain lidocaine overlying the wrist mass. Skin of her right upper extremity was prepped and draped in the usual sterile fashion. Hand and forearm were exsanguinated and the tourniquet elevated to 250 mmHg. A chevron incision was made, centered over the mass. We dissected bluntly through the subcutaneous tissue and the mass was emanating from the volar wrist capsule. It was carefully dissected away from the radial artery, which was retracted by the construction project assistant, Claudia Dacosta. The mass was removed and a small portion of the wrist joint capsule and the edge of the capsule were then cauterized with the Bovie. The wound was irrigated and the skin edges were reapproximated with 4-0 nylon suture. The wound was dressed with Xeroform, 4x4, Webril, and an Agusto wrap. The patient tolerated the procedure well and was brought to the recovery room in good condition. [id number] #: [id number] [facility]
== END 2017-07-09 10:28 | disposition home or self-care (01) ==
LOC: OREAST 08:14
PROVIDERS: ATTEND Orthopaedic Surgery
DX: M67.431 Ganglion, right wrist (principal)
CPT/HCPCS: 81025; 88304; J1885; J2250; J2405; J2704; J3010

== ENCOUNTER 2017-07-17 18:13 | Emergency (ER) | payer SELFPAY ==
[2017-07-17] MEDS ORDERED: NS 0.9% 1000 ML* 1,000 ML IV ONE (21:57)
--- NOTE | 2017-07-17 21:58 | ED ---
Syncope/Near Syncope - HPI Summary HPI Summary: 27 female presents to ED with complaints of syncopal episode that occurred around 5:45 PM today. States she felt lightheaded when she was walking around sat down on the couch and passed out. Was unwitnessed however patient feels she lost consciousness for approximately 5 seconds. She remembers sitting in the recliner chair seeing double and following over the side. Remembers slightly hitting her head against the arm of the recliner chair. Daughter saw episode and grabbed patient's who found her on the ground however she was conscious. Denies any symptoms at the moment. No chest pain or trouble breathing prior to episode. No chest pain, trouble breathing, shortness of breath, neck pain, abdominal pain, nausea, vomiting, fever or chills. Never had this happen to her before. Admits to not drinking enough water. Denies UTI symptoms. No past medical history and no medications. Has not been sick recently. Does admit to having a headache diffusely about a 6 out of 10 without vision changes. No trouble concentrating. Admits to a sore contusion on scalp where she remembers hitting her head on the arm of the chair. - History Of Current Complaint Chief Complaint: EDSyncope Time Seen by Provider: 07/17/17 21:47 Hx Obtained From: Patient Onset/Duration: Sudden Onset, Lasting Minutes, Resolved Timing: Seconds Context: Witnessed - by daughter, Loss Of Consciousness - Suspected Activity At Onset: At Rest Associated Head Trauma: Yes Aggravating Factor(s): Nothing Alleviating Factor(s): Nothing, Spontaneous Resolution Associated Signs And Symptoms: Headache - Risk Factors Cardiac Risk Factors: Negative Dysrhythmia Risk Factors: Negative Risk Factor(s): Negative - Allergies/Home Medications Allergies/Adverse Reactions: Allergies Allergy/AdvReac Type Severity Reaction Status Date / Time No Known Allergies Allergy Verified 07/09/17 08:31 PMH/Surg Hx/FS Hx/Imm Hx Endocrine/Hematology History: Denies: Hx Blood Disorders, Hx Diabetes Comment Only: Hx Anticoagulant Therapy - unknown, Hx Thyroid Disease - unknown Cardiovascular History: Denies: Hx Hypertension Comment Only: Hx Pacemaker/ICD - unknown Respiratory History: Denies: Hx Asthma Comment Only: Hx Chronic Obstructive Pulmonary Disease (COPD) - unknown GI History: Denies: Other GI Disorders History: Denies: Other Problems/Disorders Comment Only: Hx Renal Disease - unknown Musculoskeletal History: Denies: Other Musculoskeletal History Sensory History: Reports: Hx Contacts or Glasses - glasses Denies: Hx Hearing Aid Opthamlomology History: Reports: Hx Contacts or Glasses - glasses Neurological History: Denies: Hx Headaches, Hx Migraine Comment Only: Hx Dementia - unknown, Hx Seizures - unknown Psychiatric History: Denies: Hx Anxiety, Hx Depression Comment Only: Hx Substance Abuse - unknown - Cancer History Hx Chemotherapy: No - Surgical History Surgery Procedure, Year, and Place: x2 2012, 2015 Hx Anesthesia Reactions: No - Immunization History Date of Tetanus Vaccine: Unk Date of Influenza Vaccine: 0712-9486 Season Immunizations Up to Date: Yes Infectious Disease History: No Infectious Disease History: Denies: Hx Hepatitis, Hx Human Immunodeficiency Virus (HIV), Traveled Outside the [place] in Last 30 Days - Family History Known Family History: Positive: Cardiac Disease, Hypertension Negative: Diabetes - Social History Alcohol Use: Rare Hx Substance Use: No Substance Use Type: Reports: None Hx Tobacco Use: No Smoking Status (MU): Never Smoked Tobacco Review of Systems Constitutional: Negative Eyes: Negative ENT: Negative Cardiovascular: Negative Respiratory: Negative Gastrointestinal: Negative Musculoskeletal: Negative Skin: Negative Positive: Headache All Other Systems Reviewed And Are Negative: Yes Physical Exam Triage Information Reviewed: Yes Vital Signs On Initial Exam: Initial Vitals Temp Pulse Resp BP Pulse Ox 99.2 F 99 18 117/84 97 07/17/17 18:21 07/17/17 18:21 07/17/17 18:21 07/17/17 18:21 07/17/17 18:21 Vital Signs Reviewed: Yes Appearance: Positive: Well-Appearing, No Pain Distress, Well-Nourished Skin: Positive: Warm, Skin Color Reflects Adequate Perfusion, Dry. Negative: Cold, Numb, Cyanosis @, Jaundiced, Pale, Erythema @ Head/Face: Positive: Normal Head/Face Inspection, Scalp - tender area without hematoma/contusion to left parietal/occipital area. Negative: Temporal Artery Tenderness Eyes: Positive: Normal, EOMI, MAGGIE, Conjunctiva Clear, Other: - Normal visual acuity ENT: Positive: Pharynx normal, TMs normal Neck: Positive: Supple, Nontender Respiratory/Lung Sounds: Positive: Clear to Auscultation, Breath Sounds Present. Negative: Decreased Breath Sounds, Rales, Rhonchi, Wheezes Cardiovascular: Positive: Normal, RRR, Pulses are Symmetrical in both Upper and Lower Extremities. Negative: Murmur, Rub Abdomen Description: Positive: Nontender, Soft Bowel Sounds: Positive: Present Musculoskeletal: Positive: Normal, Strength/ROM Intact. Negative: Pain @, Edema Left, Edema Right Neurological: Positive: Normal - Memory and concentration intact completely normal neurologic exam, Sensory/Motor Intact, Alert, Oriented to Person Place, Time, CN Intact II-III, Reflexes Intact, NV Bundle Intact Distally, Normal Gait Psychiatric: Positive: Normal - [place] Coma Scale Best Eye Response: 4 - Spontaneous Best Motor Response: 6 - Obeys Commands Best Verbal Response: 5 - Oriented Coma Scale Total: 15 Diagnostics - Vital Signs Vital Signs Temp Pulse Resp BP Pulse Ox 07/17/17 20:25 99.2 F 84 20 108/73 100 07/17/17 18:21 99.2 F 99 18 117/84 97 - Laboratory Result Diagrams: 07/17/17 22:06 07/17/17 22:06 Lab Statement: Any lab studies that have been ordered have been reviewed, and results considered in the medical decision making process. - EKG EKG Cardiac Rate: NL EKG Rhythm: Sinus Rhythm ST Segment: Normal Ectopy: None EKG Interpretation: NSR, NSTEMI 83 bpm EKG Comparison: No Significant Change Course/Dx Course Of Treatment: Labs, EKG and urinalysis obtained. Negative hCG. Urinalysis did show some leukocytes and bacteria however patient is not having symptoms and no nitrate and blood were found will wait for urine culture. Given ibuprofen for headache. Normal neurologic and physical exam. Normal vitals. Due to mechanism of injury and normal physical exam no imaging appeared necessary at this time. [place] CT scan Roh does not recommend CT at this time. EKG normal sinus rhythm without any abnormalities or acute changes. No dysrhythmias. Patient is currently asymptomatic other than slight headache 5 and half hours after episode. Appears to have been a vasovagal episode versus some dehydration. Encourage fluid intake and rest. Follow-up with PCP tomorrow for recheck. Any new or worsening symptoms return to ED patient is aware of these worsening signs or symptoms watch out. For other concerns for other etiologies at this time. - Diagnoses Differential Diagnosis/HQI/PQRI: Positive: Vasovagal Episode Provider Diagnoses: Episode of syncope, Vasovagal episode Discharge - Sign-Out/Discharge Documenting (check all that apply): Discharge - Discharge Plan Condition: Stable Disposition: HOME Patient Education Materials: Dehydration (ED), Syncope (ED) Referrals: Adilene Pollack MD [Primary Care Provider] - Additional Instructions: Increase fluid intake. Get plenty of rest Ibuprofen/Tylenol as needed for headache You will hear about culture results once obtained if positive and treatment as needed. Follow-up with PCP within 2 days for recheck, sooner if needed. Any new or worsening symptoms please seek medical attention and return to ED promptly as discussed. - Billing Disposition and Condition Condition: STABLE Disposition: HOME
[2017-07-17 22:18] LABS: ABS Basophils 0 10^3/ul (0-0.2); ABS Eosinophils 0 10^3/ul (0-0.6); ABS Lymphocytes 1.9 10^3/ul (1.0-4.8); ABS Monocytes 0.4 10^3/ul (0-0.8); ABS Neutrophils 2.6 10^3/ul (1.5-7.7); ABS Nucleated RBC 0 10^3/ul; Eosinophil % 0.6 % (0-6); Hematocrit 36 % (35-47); Hemoglobin 12.3 g/dl (12.0-16.0); Lymphocyte % 38.9 % (25-47); Mean Corpuscular HGB Conc 34 g/dl (31-36); Mean Corpuscular Hemoglobin 32 pg (27-31); Mean Corpuscular Volume 93 fL (80-97); Mean Platelet Volume 8.9 um3 (7.4-10.4); Nucleated Red Blood Cells % 0.1; Platelet Count 228 10^3/ul (150-450); Red Blood Count 3.86 10^6/ul (4.0-5.4); Red Cell Distribution Width 13 % (10.5-15)
[2017-07-17 22:37] LABS: EGFR Non-African American 74.4 (>60)
[2017-07-17 22:51] LABS: Urine Appearance Cloudy; Urine Blood Negative (Negative); Urine Color Yellow; Urine Ketones 1+ (Negative); Urine Protein Negative (Negative); Urine Specific Gravity 1.023 (1.010-1.030); Urine Urobilinogen Negative (Negative)
[2017-07-17] MEDS ORDERED: Ibuprofen TAB* 600 MG PO ONE (22:56)
[2017-07-17 23:23] VITALS: BP 111/70
== END 2017-07-17 23:25 | disposition home or self-care (01) ==
LOC: ED 18:13
DX: R55 Syncope and collapse (principal); R51 Headache; S00.03XA Contusion of scalp, initial encounter; W22.03XA Walked into furniture, initial encounter; Y93.89 Activity, other specified; Y92.008 Other place in unspecified non-institutional (private) residence as the place of occurrence of the external cause; Z32.02 Encounter for pregnancy test, result negative
CPT/HCPCS: 36415; 80053; 81003; 81015; 83605; 83735; 84443; 84484; 84702; 85025; 87077; 87086; 87186; 93005; 99283; A9270-GY

== ENCOUNTER 2017-10-22 23:57 | Emergency (ER) | payer BC, MEDICAID ==
[2017-10-23 00:20] VITALS: BP 112/76
[2017-10-23] MEDS ORDERED: Cyclobenzaprine TAB* 10 MG PO ONE (01:54)
[2017-10-23] MEDS ORDERED: Ketorolac INJ* 30 MG/ML 1 ML VIAL IM ONE (01:54)
--- NOTE | 2017-10-23 01:55 | ED ---
Neck Pain - HPI Summary HPI Summary: 27-year-old female presents with neck pain the past 4 days. She denies any injury. She states the pain is on the left side of her neck. She admits that is sharp pain. She denies any numbness or tingling. She denies any weakness. 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 No chest pain shortness of breath. No injury. No fevers. No neck stiffness. She's been trying ibuprofen heat with minimal relief. - History of Current Complaint Chief Complaint: EDNeckComplaint Stated Complaint: NECK/SHOULDER PAIN Time Seen by Provider: 10/23/17 01:34 Hx Last Menstrual Period: none-on Depo shot (was late for last dose) Pain Intensity: 8 - Allergies/Home Medications Allergies/Adverse Reactions: Allergies Allergy/AdvReac Type Severity Reaction Status Date / Time No Known Allergies Allergy Verified 07/09/17 08:31 PMH/Surg Hx/FS Hx/Imm Hx Endocrine/Hematology History: Denies: Hx Blood Disorders, Hx Diabetes Comment Only: Hx Anticoagulant Therapy - unknown, Hx Thyroid Disease - unknown Cardiovascular History: Denies: Hx Hypertension Comment Only: Hx Pacemaker/ICD - unknown Respiratory History: Denies: Hx Asthma Comment Only: Hx Chronic Obstructive Pulmonary Disease (COPD) - unknown GI History: Denies: Other GI Disorders History: Denies: Other Problems/Disorders Comment Only: Hx Renal Disease - unknown Musculoskeletal History: Denies: Other Musculoskeletal History Sensory History: Reports: Hx Contacts or Glasses - glasses Denies: Hx Hearing Aid Opthamlomology History: Reports: Hx Contacts or Glasses - glasses Neurological History: Denies: Hx Headaches, Hx Migraine Comment Only: Hx Dementia - unknown, Hx Seizures - unknown Psychiatric History: Denies: Hx Anxiety, Hx Depression Comment Only: Hx Substance Abuse - unknown - Cancer History Hx Chemotherapy: No - Surgical History Surgery Procedure, Year, and Place: x2 2012, 2016 Hx Anesthesia Reactions: No - Immunization History Date of Tetanus Vaccine: Unk Date of Influenza Vaccine: 0180-9618 Season Infectious Disease History: No Infectious Disease History: Denies: Hx Hepatitis, Hx Human Immunodeficiency Virus (HIV), Traveled Outside the [place] in Last 30 Days - Family History Known Family History: Positive: Cardiac Disease, Hypertension Negative: Diabetes - Social History Alcohol Use: Rare Hx Substance Use: No Substance Use Type: Reports: None Hx Tobacco Use: No Smoking Status (MU): Never Smoked Tobacco Review of Systems Negative: Fever Negative: Chest Pain Negative: Shortness Of Breath Positive: Myalgia All Other Systems Reviewed And Are Negative: Yes Physical Exam Triage Information Reviewed: Yes Vital Signs On Initial Exam: Initial Vitals Temp Pulse Resp BP Pulse Ox 98.3 F 87 16 112/76 100 10/23/17 00:17 10/23/17 00:17 10/23/17 00:17 10/23/17 00:17 10/23/17 00:17 Vital Signs Reviewed: Yes Appearance: Positive: Well-Appearing Skin: Positive: Warm, Dry Head/Face: Positive: Normal Head/Face Inspection Eyes: Positive: Normal, Conjunctiva Clear ENT: Positive: Pharynx normal Respiratory/Lung Sounds: Positive: Clear to Auscultation, Breath Sounds Present Cardiovascular: Positive: Normal, RRR Musculoskeletal: Positive: Limited @ - Neck, Other - no midline tenderness neck , tenderness over left side of neck full range of motion shoulder, good pulses Neurological: Positive: Reflexes Intact - biceps Psychiatric: Positive: Normal Diagnostics - Vital Signs Vital Signs Temp Pulse Resp BP Pulse Ox 10/23/17 00:17 98.3 F 87 16 112/76 100 - Laboratory Lab Statement: Any lab studies that have been ordered have been reviewed, and results considered in the medical decision making process. Neck Course/Dx - Course Course Of Treatment: 27-year-old female presents with neck pain the past 4 days. She denies any injury. She states the pain is on the left side of her neck. She admits that is sharp pain. She denies any numbness or tingling. She denies any weakness. 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 No chest pain shortness of breath. No injury. No fevers. No neck stiffness. She's been trying ibuprofen heat with minimal relief. On exam tenderness over left neck. Neurovascularly intact. Range of motion of neck intact with pain. We' ll treat with Flexeril. Patient understands agrees plan. - Diagnoses Differential Dx/HQI/PQRI: Positive: Sprain, Strain, Torticollis Provider Diagnoses: Neck pain Discharge - Sign-Out/Discharge Documenting (check all that apply): Patient Departure - Discharge Plan Condition: Good Disposition: HOME Prescriptions: Cyclobenzaprine TAB* [Flexeril 10 MG TAB*] 10 mg PO TID PRN #15 tab PRN Reason: Pain Patient Education Materials: Acute Neck Pain (ED) Forms: *Work Release Referrals: Adilene Pollack MD [Primary Care Provider] - Additional Instructions: Take muscle relaxers three times a day Use ibuprofen or Tylenol for pain every 6 hours ice/heat area, move as much as possible Follow up with primary within 5 days Return to ED if develop any new or worsening symptoms - Billing Disposition and Condition Condition: GOOD Disposition: Home
== END 2017-10-23 02:31 | disposition home or self-care (01) ==
LOC: ED 23:57
DX: M54.2 Cervicalgia (principal)
CPT/HCPCS: 96372; 99282; A9270-GY; J1885

== ENCOUNTER 2018-01-09 20:11 | Emergency (ER) | payer BC ==
[2018-01-09 21:06] LABS: Urine Appearance Turbid; Urine Blood 2+ (Negative); Urine Color Amber; Urine Ketones Negative (Negative); Urine Protein 2+(100 mg/dL) (Negative); Urine Red Blood Cell Absent (Absent); Urine Specific Gravity 1.013 (1.010-1.030); Urine Urobilinogen Negative (Negative); Urine White Blood Cell 3+(>20/hpf) (Absent)
[2018-01-09] MEDS ORDERED: Acetaminophen TAB* 325 MG PO ONE (21:35)
[2018-01-09] MEDS ORDERED: cefTRIAXone(*) 1 GM in NS 0.9% 50 ML* 50 ML IVPB ONE (21:35)
[2018-01-09 21:38] LABS: ABS Basophils 0 10^3/ul (0-0.2); ABS Eosinophils 0 10^3/ul (0-0.6); ABS Monocytes 0.9 10^3/ul (0-0.8); ABS Neutrophils 9.5 10^3/ul (1.5-7.7); ABS Nucleated RBC 0 10^3/ul; Eosinophil % 0 % (0-6); Hematocrit 33 % (35-47); Hemoglobin 11.1 g/dl (12.0-16.0); Lymphocyte % 8.6 % (25-47); Mean Corpuscular HGB Conc 34 g/dl (31-36); Mean Corpuscular Hemoglobin 32 pg (27-31); Mean Corpuscular Volume 93 fL (80-97); Mean Platelet Volume 8.9 um3 (7.4-10.4); Nucleated Red Blood Cells % 0; Platelet Count 196 10^3/ul (150-450); Red Blood Count 3.53 10^6/ul (4.00-5.40); Red Cell Distribution Width 13 % (10.5-15); White Blood Count 11.5 10^3/ul (3.5-10.8)
[2018-01-09 21:56] LABS: EGFR Non-African American 76.3 (>60)
--- NOTE | 2018-01-09 22:44 | ED ---
GI/ HPI - HPI Summary HPI Summary: 27 year old Female presents with back pain for the past couple days. She admits to urinary urgency. She admits to fever that started today. She denies any injury to her back. No loss of bowel or bladder saddle anesthesia. She denies any history of UTIs. No abnormal vaginal discharge. She admits to lower bowel pain. She admits to nausea but denies any vomiting. No diarrhea no constipation. No previous belly surgeries. - History of Current Complaint Chief Complaint: EDFlankPain Time Seen by Provider: 01/09/18 21:34 Stated Complaint: BACK PAIN Hx Last Menstrual Period: none-on Depo shot (was late for last dose) Pain Intensity: 9 - Allergy/Home Medications Allergies/Adverse Reactions: Allergies Allergy/AdvReac Type Severity Reaction Status Date / Time No Known Allergies Allergy Verified 07/09/17 08:31 PMH/Surg Hx/FS Hx/Imm Hx Endocrine/Hematology History: Denies: Hx Blood Disorders, Hx Diabetes Comment Only: Hx Anticoagulant Therapy - unknown, Hx Thyroid Disease - unknown Cardiovascular History: Denies: Hx Hypertension Comment Only: Hx Pacemaker/ICD - unknown Respiratory History: Denies: Hx Asthma Comment Only: Hx Chronic Obstructive Pulmonary Disease (COPD) - unknown GI History: Denies: Other GI Disorders History: Denies: Other Problems/Disorders Comment Only: Hx Renal Disease - unknown Musculoskeletal History: Denies: Other Musculoskeletal History Sensory History: Reports: Hx Contacts or Glasses - glasses Denies: Hx Hearing Aid Opthamlomology History: Reports: Hx Contacts or Glasses - glasses Neurological History: Denies: Hx Headaches, Hx Migraine Comment Only: Hx Dementia - unknown, Hx Seizures - unknown Psychiatric History: Denies: Hx Anxiety, Hx Depression Comment Only: Hx Substance Abuse - unknown - Cancer History Hx Chemotherapy: No - Surgical History Surgery Procedure, Year, and Place: x2 2012, 2016 Hx Anesthesia Reactions: No - Immunization History Date of Tetanus Vaccine: Unk Date of Influenza Vaccine: 0866-1657 Season Infectious Disease History: No Infectious Disease History: Denies: Hx Hepatitis, Hx Human Immunodeficiency Virus (HIV), Traveled Outside the [place] in Last 30 Days - Family History Known Family History: Positive: Cardiac Disease, Hypertension Negative: Diabetes - Social History Alcohol Use: Rare Hx Substance Use: No Substance Use Type: Reports: None Hx Tobacco Use: No Smoking Status (MU): Never Smoked Tobacco Review of Systems Positive: Fever Negative: Chest Pain Negative: Shortness Of Breath Positive: Abdominal Pain Positive: dysuria, flank pain All Other Systems Reviewed And Are Negative: Yes Physical Exam Triage Information Reviewed: Yes Vital Signs On Initial Exam: Initial Vitals Temp Pulse Resp BP Pulse Ox 100.7 F 123 14 106/75 100 01/09/18 20:15 01/09/18 20:15 01/09/18 20:15 01/09/18 20:15 01/09/18 20:15 Vital Signs Reviewed: Yes Appearance: Positive: Well-Appearing Skin: Positive: Warm, Dry Head/Face: Positive: Normal Head/Face Inspection Eyes: Positive: Normal, Conjunctiva Clear ENT: Positive: Pharynx normal Respiratory/Lung Sounds: Positive: Clear to Auscultation, Breath Sounds Present Cardiovascular: Positive: Normal, RRR Abdomen Description: Positive: Soft, CVA Tenderness (R), Other: - tenderness suprapubic Bowel Sounds: Positive: Present Musculoskeletal: Positive: Normal Neurological: Positive: Normal Psychiatric: Positive: Normal Diagnostics - Vital Signs Vital Signs Temp Pulse Resp BP Pulse Ox 01/09/18 20:15 100.7 F 123 14 106/75 100 - Laboratory Lab Results: Lab Results 01/09/18 01/09/18 01/09/18 Range/Units 20:21 21:33 21:33 WBC 11.5 H (3.5-10.8) 10^3/ul RBC 3.53 L (4.00-5.40) 10^6/ul Hgb 11.1 L (12.0-16.0) g/dl Hct 33 L (35-47) % MCV 93 (80-97) fL MCH 32 H (27-31) pg MCHC 34 (31-36) g/dl RDW 13 (10.5-15) % Plt Count 196 (150-450) 10^3/ul MPV 8.9 (7.4-10.4) um3 Neut % (Auto) 83.0 (38-83) % Lymph % (Auto) 8.6 L (25-47) % [place] % (Auto) 8.2 H (0-7) % Eos % (Auto) 0 (0-6) % Baso % (Auto) 0.2 (0-2) % Absolute Neuts (auto) 9.5 H (1.5-7.7) 10^3/ul Absolute Lymphs (auto) 1.0 (1.0-4.8) 10^3/ul Absolute Monos (auto) 0.9 H (0-0.8) 10^3/ul Absolute Eos (auto) 0 (0-0.6) 10^3/ul Absolute Basos (auto) 0 (0-0.2) 10^3/ul Absolute Nucleated RBC 0 10^3/ul Nucleated RBC % 0 Sodium 137 (135-145) mmol/L Potassium 3.8 (3.5-5.0) mmol/L Chloride 104 (101-111) mmol/L Carbon Dioxide 24 (22-32) mmol/L Anion Gap 9 (2-11) mmol/L BUN 9 (6-24) mg/dL Creatinine 0.90 (0.51-0.95) mg/dL Est GFR ( Amer) 92.3 (>60) Est GFR (Non-Af Amer) 76.3 (>60) BUN/Creatinine Ratio 10.0 (8-20) Glucose 103 H (70-100) mg/dL Lactic Acid (0.5-2.0) mmol/L Calcium 9.2 (8.6-10.3) mg/dL Total Bilirubin 1.20 H (0.2-1.0) mg/dL AST 32 (13-39) U/L ALT 41 (7-52) U/L Alkaline Phosphatase 57 (34-104) U/L C-Reactive Protein 77.81 H (<8.01) mg/L Total Protein 7.5 (6.4-8.9) g/dL Albumin 4.4 (3.2-5.2) g/dL Globulin 3.1 (2-4) g/dL Albumin/Globulin Ratio 1.4 (1-3) Beta HCG, Quant < 0.60 mIU/mL Urine Color [place] Urine Appearance Turbid Urine pH 5.0 (5-9) Ur Specific [place] 1.013 (1.010-1.030) Urine Protein 2+(100 mg/dl) A (Negative) Urine Ketones Negative (Negative) Urine Blood 2+ A (Negative) Urine Nitrate Positive A (Negative) Urine Bilirubin Negative (Negative) Urine Urobilinogen Negative (Negative) Ur Leukocyte Esterase 3+ A (Negative) Urine WBC (Auto) 3+(>20/hpf) A (Absent) Urine RBC (Auto) Absent (Absent) Ur Squamous Epith Cells Present A (Absent) Urine Bacteria Absent (Absent) Urine Glucose Negative (Negative) 01/09/18 Range/Units 21:33 WBC (3.5-10.8) 10^3/ul RBC (4.00-5.40) 10^6/ul Hgb (12.0-16.0) g/dl Hct (35-47) % MCV (80-97) fL MCH (27-31) pg MCHC (31-36) g/dl RDW (10.5-15) % Plt Count (150-450) 10^3/ul MPV (7.4-10.4) um3 Neut % (Auto) (38-83) % Lymph % (Auto) (25-47) % [place] % (Auto) (0-7) % Eos % (Auto) (0-6) % Baso % (Auto) (0-2) % Absolute Neuts (auto) (1.5-7.7) 10^3/ul Absolute Lymphs (auto) (1.0-4.8) 10^3/ul Absolute Monos (auto) (0-0.8) 10^3/ul Absolute Eos (auto) (0-0.6) 10^3/ul Absolute Basos (auto) (0-0.2) 10^3/ul Absolute Nucleated RBC 10^3/ul Nucleated RBC % Sodium (135-145) mmol/L Potassium (3.5-5.0) mmol/L Chloride (101-111) mmol/L Carbon Dioxide (22-32) mmol/L Anion Gap (2-11) mmol/L BUN (6-24) mg/dL Creatinine (0.51-0.95) mg/dL Est GFR ( Amer) (>60) Est GFR (Non-Af Amer) (>60) BUN/Creatinine Ratio (8-20) Glucose (70-100) mg/dL Lactic Acid 0.7 (0.5-2.0) mmol/L Calcium (8.6-10.3) mg/dL Total Bilirubin (0.2-1.0) mg/dL AST (13-39) U/L ALT (7-52) U/L Alkaline Phosphatase (34-104) U/L C-Reactive Protein (<8.01) mg/L Total Protein (6.4-8.9) g/dL Albumin (3.2-5.2) g/dL Globulin (2-4) g/dL Albumin/Globulin Ratio (1-3) Beta HCG, Quant mIU/mL Urine Color Urine Appearance Urine pH (5-9) Ur Specific [place] (1.010-1.030) Urine Protein (Negative) Urine Ketones (Negative) Urine Blood (Negative) Urine Nitrate (Negative) Urine Bilirubin (Negative) Urine Urobilinogen (Negative) Ur Leukocyte Esterase (Negative) Urine WBC (Auto) (Absent) Urine RBC (Auto) (Absent) Ur Squamous Epith Cells (Absent) Urine Bacteria (Absent) Urine Glucose (Negative) Result Diagrams: 01/09/18 21:33 01/09/18 21:33 Lab Statement: Any lab studies that have been ordered have been reviewed, and results considered in the medical decision making process. GIGU Course/Dx - Course Course Of Treatment: 27 year old Female presents with back pain for the past couple days. She admits to urinary urgency. She admits to fever that started today. She denies any injury to her back. No loss of bowel or bladder saddle anesthesia. She denies any history of UTIs. No abnormal vaginal discharge. She admits to lower bowel pain. She admits to nausea but denies any vomiting. No diarrhea no constipation. No previous belly surgeries. On exam has tenderness over right CVA. Urine shows a UTI. Labs white blood cells elevated. Has a fever. Gave Tylenol and Rocephin and feeling better. Will continue to treat treat with Cipro. Patient understands and agrees with plan. - Diagnoses Differential Diagnoses - Female: Gastroenteritis (Viral), Pyelonephritis, Urinary Tract Infection Provider Diagnoses: Pyelonephritis Discharge - Sign-Out/Discharge Documenting (check all that apply): Patient Departure - Discharge Plan Condition: Good Disposition: HOME Prescriptions: Ciprofloxacin TAB* [Cipro 500 MG TAB*] 500 mg PO BID #14 tab Patient Education Materials: Kidney Infection (ED) Forms: *Work Release Referrals: Adilene Pollack MD [Primary Care Provider] - Additional Instructions: Take antibiotic twice a day for 7 days, starting tomorrow Drink plenty of water Use alternative forms of control Take Tylenol or ibuprofen every 6 hours as needed for pain and fever Return to ED if develop severe vomiting, or any new or worsening symptoms - Billing Disposition and Condition Condition: GOOD Disposition: Home
[2018-01-09 23:04] VITALS: BP 118/69
--- NOTE | 2018-01-12 08:07 | ED ---
Progress - Progress Note Progress Note: Patient's final urine culture reveals greater than 100,000 Escherichia coli. Patient was started on ciprofloxacin to which organism is sensitive. No change in treatment at this time. Course/Dx - Course Course Of Treatment: 27 year old Female presents with back pain for the past couple days. She admits to urinary urgency. She admits to fever that started today. She denies any injury to her back. No loss of bowel or bladder saddle anesthesia. She denies any history of UTIs. No abnormal vaginal discharge. She admits to lower bowel pain. She admits to nausea but denies any vomiting. No diarrhea no constipation. No previous belly surgeries. On exam has tenderness over right CVA. Urine shows a UTI. Labs white blood cells elevated. Has a fever. Gave Tylenol and Rocephin and feeling better. Will continue to treat treat with Cipro. Patient understands and agrees with plan. - Diagnoses Provider Diagnoses: Pyelonephritis Discharge - Sign-Out/Discharge Documenting (check all that apply): Post-Discharge Follow Up - Discharge Plan Condition: Good Disposition: HOME Prescriptions: Ciprofloxacin TAB* [Cipro 500 MG TAB*] 500 mg PO BID #14 tab Patient Education Materials: Kidney Infection (ED) Forms: *Work Release Referrals: Adilene Pollack MD [Primary Care Provider] - Additional Instructions: Take antibiotic twice a day for 7 days, starting tomorrow Drink plenty of water Use alternative forms of control Take Tylenol or ibuprofen every 6 hours as needed for pain and fever Return to ED if develop severe vomiting, or any new or worsening symptoms - Billing Disposition and Condition Condition: GOOD Disposition: Home
== END 2018-01-09 23:00 | disposition home or self-care (01) ==
LOC: ED 20:11
DX: N10 Acute pyelonephritis (principal); B96.20 Unspecified Escherichia coli [E. coli] as the cause of diseases classified elsewhere; R11.0 Nausea
CPT/HCPCS: 36415; 80053; 81003; 81015; 83605; 84702; 85025; 86140; 87077; 87086; 87186; 96372; 99282; A9270-GY; J0696

== ENCOUNTER 2020-08-16 06:05 | Inpatient (IN) ==
[~2020-08-16 06:05] MED LIST changes: -Buffered Lidocaine 0.9% SYRIN* 5 ML/SYR SYRINGE INTRADERM ONE; +Buffered Lidocaine 1% SYRIN 1 ml INTRADERM ONE; -Famotidine IV* 10 MG/ML 2 ML (20 mg) IV ONE; +Lactated Ringers 1000 ml BAG 1,000 ML IV SCH
[2020-08-16] MEDS ORDERED: ceFOXitin 2 GM in NS 0.9% 50 ML IVPB ONE (07:00)
[2020-08-16 07:05] LABS: ABS Eosinophils 0.1 10^3/ul (0-0.6); ABS Lymphocytes 1.8 10^3/ul (1.0-4.8); ABS Monocytes 1.1 10^3/ul (0-0.8); ABS Neutrophils 7.6 10^3/ul (1.5-7.7); Eosinophil % 0.7 %; Hematocrit 25 % (35-47); Hemoglobin 8.6 g/dL (12.0-16.0); Lymphocyte % 16.7 %; Mean Corpuscular HGB Conc 34 g/dL (31-36); Mean Corpuscular Hemoglobin 31 pg (27-31); Mean Corpuscular Volume 90 fL (80-97); Mean Platelet Volume 8.5 fL (7.4-10.4); Nucleated Red Blood Cells % 0.2; Platelet Count 219 10^3/uL (150-450); Red Blood Count 2.82 10^6 /uL (3.70-4.87); Red Cell Distribution Width 15 % (10-15); White Blood Count 10.6 10^3/uL (3.5-10.8)
[2020-08-16] MEDS ORDERED: ceFOXitin 2 GM IVPREMIX 2 GM/50 ML BAG ONE (07:10)
[2020-08-16 07:11] LABS: Albumin 3.2 g/dL (3.2-5.2); Albumin/Globulin Ratio 1.1 (1-3); Calcium 8.7 mg/dL (8.6-10.3); EGFR African American 173.7 (>60); EGFR Non-African American 143.6 (>60); Globulin 2.9 g/dL (2-4); Potassium 3.9 mmol/L (3.5-5.0); Total Bilirubin 0.5 mg/dL (0.2-1.0); Total Protein 6.1 g/dL (6.4-8.9)
[2020-08-16] MEDS ORDERED: Morphine PF AMP (0.5MG/ML) 5 MG/10 ML AMP ONE (07:49)
[2020-08-16] MEDS ORDERED: fentaNYL 100 mcg/2 ml 50 MCG/ML VIAL ONE (07:49)
[2020-08-16] MEDS ORDERED: Phenylephrine 40 mcg/mL 10mL (400mcg) SYRINGE ONE ×3 (08:14→08:29)
[2020-08-16] MEDS ORDERED: EPHEDrine (Pressors) 50 MG/ML VIAL ONE (08:19)
[2020-08-16] MEDS ORDERED: Oxytocin 10 UNITS/ML 1 ML VIAL ONE ×2 (08:26→09:02)
[2020-08-16 08:28] LABS: Urine Benzodiazepine Screen None Detected (None Detect); Urine Opiates Screen None Detected (None Detect)
[2020-08-16] MEDS ORDERED: diPHENhydraMINE IV 50 MG/ML 1 ml VIAL (BENADRYL) IV PRN (09:08)
[2020-08-16] MEDS ORDERED: Ondansetron 4 mg VIAL 2 MG/ML 2 ml VIAL IV PRN (09:08)
[2020-08-16] MEDS ORDERED: Naloxone 0.4 mg VIAL 0.4 mg/ml 1 ml VIAL IV PRN (09:08)
[2020-08-16] MEDS ORDERED: Glycerin ADULT 2.4 gm SUPP PR PRN (09:42)
[2020-08-16] MEDS ORDERED: Witch Hazel PAD JAR TOPICAL PRN (09:42)
[2020-08-16] MEDS ORDERED: Dibucaine 1% OINT 28.35 GM TUBE PR PRN (09:42)
[2020-08-16] MEDS ORDERED: Lactated Ringers 1000 ml BAG 1,000 ML IV SCH (10:00)
[2020-08-16 10:04] LABS: ABS Eosinophils 0.1 10^3/ul (0-0.6); ABS Lymphocytes 1.7 10^3/ul (1.0-4.8); ABS Neutrophils 9.7 10^3/ul (1.5-7.7); Eosinophil % 0.4 %; Hematocrit 27 % (35-47); Hemoglobin 8.8 g/dL (12.0-16.0); Lymphocyte % 13.3 %; Mean Corpuscular HGB Conc 33 g/dL (31-36); Mean Corpuscular Hemoglobin 30 pg (27-31); Mean Corpuscular Volume 90 fL (80-97); Mean Platelet Volume 8.4 fL (7.4-10.4); Nucleated Red Blood Cells % 0.1; Platelet Count 201 10^3/uL (150-450); Red Blood Count 2.94 10^6 /uL (3.70-4.87); Red Cell Distribution Width 15 % (10-15); White Blood Count 12.5 10^3/uL (3.5-10.8)
[2020-08-16 10:28] LABS: Urine Appearance Clear; Urine Bilirubin Negative (Negative); Urine Blood Negative (Negative); Urine Color Colorless; Urine Glucose Negative (Negative); Urine Ketones Negative (Negative); Urine Nitrite Negative (Negative); Urine Protein Negative (Negative); Urine Specific Gravity 1.003 (1.002-1.030); Urine Urobilinogen Negative (Negative)
[2020-08-16] MEDS: Oxytocin in LR 20 UNITS/1,000 ML BAG IVPB SCH ×2 (13:17→15:47)
[2020-08-16] MEDS ORDERED: Nalbuphine 10 MG/ML 1 ML VIAL IV PRN (15:16)
[2020-08-16 17:28] LABS: ABS Lymphocytes 1.6 10^3/ul (1.0-4.8); ABS Neutrophils 15.8 10^3/ul (1.5-7.7); Eosinophil % 0.1 %; Hematocrit 21 % (35-47); Lymphocyte % 8.6 %; Mean Corpuscular HGB Conc 33 g/dL (31-36); Mean Corpuscular Hemoglobin 30 pg (27-31); Mean Corpuscular Volume 91 fL (80-97); Mean Platelet Volume 9.6 fL (7.4-10.4); Platelet Count 190 10^3/uL (150-450); Red Blood Count 2.36 10^6 /uL (3.70-4.87); Red Cell Distribution Width 15 % (10-15); White Blood Count 18.5 10^3/uL (3.5-10.8)
[2020-08-17 05:14] LABS: ABS Basophils 0.1 10^3/ul (0-0.2); ABS Eosinophils 0.1 10^3/ul (0-0.6); ABS Lymphocytes 1.1 10^3/ul (1.0-4.8); ABS Monocytes 1.2 10^3/ul (0-0.8); ABS Neutrophils 14.4 10^3/ul (1.5-7.7); Eosinophil % 0.5 %; Hematocrit 20 % (35-47); Hemoglobin 6.7 g/dL (12.0-16.0); Lymphocyte % 6.7 %; Mean Corpuscular HGB Conc 33 g/dL (31-36); Mean Corpuscular Hemoglobin 30 pg (27-31); Mean Corpuscular Volume 90 fL (80-97); Mean Platelet Volume 8.3 fL (7.4-10.4); Platelet Count 175 10^3/uL (150-450); Red Blood Count 2.22 10^6 /uL (3.70-4.87); Red Cell Distribution Width 15 % (10-15); White Blood Count 16.9 10^3/uL (3.5-10.8)
[2020-08-17] MEDS: Iron Sucrose 200 MG in NS 0.9% 100 ml BAG 100 ML IVPB SCH (08:51)
[2020-08-18] MEDS: Iron Sucrose 200 MG in NS 0.9% 100 ml BAG 100 ML IVPB SCH (10:17)
[2020-08-19 07:55] VITALS: BP 96/66
[2020-08-19 10:41] LABS: ABS Eosinophils 0.2 10^3/ul (0-0.6); ABS Lymphocytes 1.1 10^3/ul (1.0-4.8); ABS Monocytes 0.5 10^3/ul (0-0.8); ABS Neutrophils 8.2 10^3/ul (1.5-7.7); ABS Nucleated RBC 0.1 10^3/ul; Eosinophil % 1.7 %; Hematocrit 20 % (35-47); Hemoglobin 6.6 g/dL (12.0-16.0); Lymphocyte % 10.9 %; Mean Corpuscular HGB Conc 33 g/dL (31-36); Mean Corpuscular Hemoglobin 31 pg (27-31); Mean Corpuscular Volume 93 fL (80-97); Mean Platelet Volume 7.9 fL (7.4-10.4); Nucleated Red Blood Cells % 0.5; Platelet Count 212 10^3/uL (150-450); Red Blood Count 2.15 10^6 /uL (3.70-4.87); Red Cell Distribution Width 15 % (10-15); White Blood Count 10.1 10^3/uL (3.5-10.8)
== END 2020-08-19 12:59 | disposition home or self-care (01) | DRG 540 ==
LOC: MCHOB 06:05
PROVIDERS: ADMIT Obstetrics & Gynecology; ATTEND Obstetrics & Gynecology

== ENCOUNTER 2022-11-29 00:46 | Inpatient (IN) ==
[2022-11-29] MEDS: Lactated Ringers 1000 ml BAG 1,000 ML IV SCH (01:50)
[2022-11-29 02:05] LABS: ABS Eosinophils 0.1 10^3/uL (0.0-0.5); ABS Lymphocytes 1.7 10^3/uL (1.0-4.8); ABS Monocytes 0.9 10^3/uL (0.0-0.9); ABS Neutrophils 6.1 10^3/uL (1.5-7.6); ABS Nucleated RBC 0.01 10^3/ul; Eosinophil % 0.9 %; Hematocrit 33.2 % (35-45); Hemoglobin 11.4 g/dL (11.5-14.3); Lymphocyte % 19.6 %; Mean Corpuscular Hemoglobin 33.2 pg (27-33); Mean Corpuscular Hgb Conc 34.3 g/dL (31-36); Mean Corpuscular Volume 96.8 fL (80-97); Mean Platelet Volume 9.1 fL (7.5-11.2); Nucleated Red Blood Cells % 0.1 /100 WBC (0.0-0.4); Platelet Count 163 10^3/uL (150-450); Red Blood Count 3.43 10^6/uL (3.63-4.92); White Blood Count 8.9 10^3/uL (3.8-11.8)
[2022-11-29 02:08] LABS: Urine Appearance Cloudy; Urine Bilirubin Negative (Negative); Urine Blood Negative (Negative); Urine Color Yellow; Urine Glucose Negative (Negative); Urine Ketones Negative (Negative); Urine Nitrite Positive (Negative); Urine Protein Negative (Negative); Urine Urobilinogen Positive (Negative)
[2022-11-29 02:12] LABS: Urine Bacteria 3+ (Absent); Urine Red Blood Cell Absent (Absent); Urine Squamous Epithelial Cell Present (Absent); Urine White Blood Cell 3+(>20/hpf) (Absent); Urine Yeast Present (Absent)
[2022-11-29 02:23] LABS: Urine Benzodiazepine Screen None Detected (None Detect); Urine Cannabinoids Screen None Detected (None Detect); Urine Opiates Screen None Detected (None Detect)
[2022-11-29] MEDS ORDERED: Sodium Citrate/Citric Acid LIQ 15 ML UDC ONE (03:08)
[2022-11-29] MEDS ORDERED: ceFOXitin 2 GM IVPREMIX 2 GM/50 ML BAG ONE (03:08)
[2022-11-29] MEDS ORDERED: fentaNYL 100 mcg/2 ml 50 MCG/ML VIAL ONE ×2 (03:29→09:34)
[2022-11-29] MEDS ORDERED: Morphine PF AMP (0.5MG/ML) 5 MG/10 ML AMP ONE (03:31)
[2022-11-29] MEDS: Sodium Citrate/Citric Acid LIQ 15 ML UDC ONE (03:45)
[2022-11-29] MEDS ORDERED: Ondansetron 4 mg VIAL 2 MG/ML 2 ml VIAL ONE (04:12)
[2022-11-29] MEDS ORDERED: Dexmedetomidine 200 mcg/2 ml 2 ml VIAL (200 mcg) ONE (04:14)
[2022-11-29] MEDS ORDERED: Oxytocin 10 UNITS/ML 1 ML VIAL ONE (04:50)
[2022-11-29] MEDS ORDERED: Ondansetron 4 mg VIAL 2 MG/ML 2 ml VIAL IV PRN (05:15)
[2022-11-29] MEDS ORDERED: Metoclopramide 5 MG/ML VIAL (10 mg) IV PRN (05:15)
[2022-11-29] MEDS ORDERED: Naloxone 0.4 mg VIAL 0.4 mg/ml 1 ml VIAL IV PUSH PRN (05:15)
[2022-11-29] MEDS ORDERED: Acetaminophen IV 1 GM/100ML 1,000 MG/100 ML BAG IV PRN (05:15)
[2022-11-29] MEDS ORDERED: Glycerin ADULT 2.4 gm SUPP PR PRN (05:30)
[2022-11-29] MEDS ORDERED: Dibucaine 1% OINT 28.35 GM TUBE PR PRN (05:30)
[2022-11-29] MEDS ORDERED: Oxytocin in LR 20,000 MILLI.UNIT/1,000 ML BAG IV SCH ×2 (05:30→14:55)
[2022-11-29] MEDS ORDERED: Witch Hazel PAD JAR TOPICAL PRN (05:30)
[2022-11-29] MEDS ORDERED: Lactated Ringers 1000 ml BAG 1,000 ML IV SCH (06:00)
[2022-11-29] MEDS ORDERED: Methylergonovine 0.2 mg AMPULE 1 ml AMP ONE (09:44)
[2022-11-29] MEDS ORDERED: Methylergonovine 0.2 mg AMPULE 1 ml AMP IM ONE (10:33)
[2022-11-29] MEDS ORDERED: ceFAZolin 1 GM ADVAN 1 GM in NS 0.9% 50 ML 50 ML IVPB ONE (10:35)
[2022-11-29 10:40] LABS: ABS Basophils 0.1 10^3/uL (0.0-0.1); ABS Lymphocytes 2.8 10^3/uL (1.0-4.8); ABS Monocytes 1.4 10^3/uL (0.0-0.9); ABS Neutrophils 14.4 10^3/uL (1.5-7.6); ABS Nucleated RBC 0.03 10^3/ul; Eosinophil % 0.2 %; Hematocrit 25.5 % (35-45); Hemoglobin 8.8 g/dL (11.5-14.3); Lymphocyte % 14.8 %; Mean Corpuscular Hemoglobin 33.4 pg (27-33); Mean Corpuscular Hgb Conc 34.3 g/dL (31-36); Mean Corpuscular Volume 97.4 fL (80-97); Mean Platelet Volume 8.9 fL (7.5-11.2); Nucleated Red Blood Cells % 0.1 /100 WBC (0.0-0.4); Platelet Count 160 10^3/uL (150-450); Red Blood Count 2.62 10^6/uL (3.63-4.92); Red Cell Distribution Width 16.5 % (12-17); White Blood Count 18.6 10^3/uL (3.8-11.8)
[2022-11-29 12:49] LABS: Activated Partial Thrombo Time 27.5 seconds (26.0-38.0); INR 1.03 (0.83-1.13)
[2022-11-29 15:40] LABS: Platelet Count 160 10^3/ul (150-450); Schistocytes ABSENT
[2022-11-29 19:20] LABS: Hematocrit 23.4 % (35-45); Hemoglobin 8.1 g/dL (11.5-14.3)
[2022-11-30] MEDS ORDERED: Sodium Citrate/Citric Acid LIQ 15 ML UDC PO ONE (06:00)
[2022-11-30] MEDS ORDERED: Buffered Lidocaine 1% SYRIN 1 ml INTRADERM ONE (06:00)
[2022-11-30] MEDS ORDERED: ceFOXitin 2 GM IVPREMIX 2 GM/50 ML BAG IVPB ONE (06:00)
[2022-11-30 08:41] LABS: ABS Eosinophils 0.1 10^3/uL (0.0-0.5); ABS Lymphocytes 1.2 10^3/uL (1.0-4.8); ABS Monocytes 1.1 10^3/uL (0.0-0.9); ABS Neutrophils 12.1 10^3/uL (1.5-7.6); ABS Nucleated RBC 0.01 10^3/ul; Eosinophil % 0.4 %; Hematocrit 21.8 % (35-45); Hemoglobin 7.5 g/dL (11.5-14.3); Lymphocyte % 8.3 %; Mean Corpuscular Hemoglobin 32.1 pg (27-33); Mean Corpuscular Hgb Conc 34.3 g/dL (31-36); Mean Corpuscular Volume 93.7 fL (80-97); Mean Platelet Volume 8.8 fL (7.5-11.2); Platelet Count 109 10^3/uL (150-450); Red Blood Count 2.33 10^6/uL (3.63-4.92); Red Cell Distribution Width 17.8 % (12-17); White Blood Count 14.4 10^3/uL (3.8-11.8)
[2022-11-30] MEDS ORDERED: Iron Sucrose 200 MG in NS 0.9% 100 ml BAG 100 ML IVPB ONE (12:00)
[2022-11-30] MEDS: Sodium Citrate/Citric Acid LIQ 15 ML UDC ONE (17:41)
[2022-11-30] MEDS: Lactated Ringers 1000 ml BAG 1,000 ML IV SCH (18:22)
[2022-12-01 08:24] VITALS: BP 95/52
[2022-12-03 17:25] LABS: T.Pallidum TP-PA Negative (Negative)
== END 2022-12-01 13:35 | disposition home or self-care (01) | DRG 540 ==
LOC: MCHOB 00:46
PROVIDERS: ADMIT Obstetrics & Gynecology; ATTEND Obstetrics & Gynecology